=== PATIENT | female | born 1960 | race Caucasian/White ===

== ENCOUNTER 2019-10-19 13:05 | Emergency (ER) | payer MEDICAID, OTHER ==
[~2019-10-19] VITALS: Ht 165.1 cm; Wt 75.2 kg
[~2019-10-19 13:05] MED LIST: CHLO25CA10 PO; SYN0.088T PO
[2019-10-19] MEDS ORDERED: normal saline 1000ML IV soln IVB ONE (13:15)
[2019-10-19] MEDS ORDERED: potassium Cl 20 mEq SR tablet PO STA (13:37)
[2019-10-19] MEDS ORDERED: LORazepam 2 mg/ml vial IV ONE ×2 (13:40→14:35)
[2019-10-19] MEDS ORDERED: potassium Cl 10 mEq/100mL bag IV ONE (13:40)
[2019-10-19] MEDS ORDERED: thiamine 100mg/ml 2ml inj. IV ONE (13:40)
[2019-10-19] MEDS ORDERED: folic acid 1mg/0.2ml inj IV ONE (13:40)
[2019-10-19] MEDS ORDERED: magnesium 2GM in 50ml NS 50 ML IV ONE ×2 (13:40→14:17)
[2019-10-19 13:48] LABS: BASOPHILS % (AUTO) 0.3 % (0-1); EOSINOPHILS % (AUTO) 0.1 % (0-6); HEMATOCRIT 41.2 % (35.0-45.0); HEMOGLOBIN 13.9 g/dl (12.0-16.0); LYMPHOCYTES # (AUTO) 0.7 X10'3 (1.1-4.8); LYMPHOCYTES % (AUTO) 9.6 % (21-51); MEAN CORPUSCULAR HEMOGLOBIN 31.3 PG (27.0-31.0); MEAN CORPUSCULAR HGB CONC 33.8 g/dL (33.0-36.5); MEAN CORPUSCULAR VOLUME 92.8 FL (78-98); MEAN PLATELET VOLUME 7.7 FL (7.4-10.4); MONOCYTES # (AUTO) 0.4 X10'3 (0-0.9); MONOCYTES % (AUTO) 5.6 % (2-12); NEUTROPHILS # (AUTO) 6.5 X10'3 (1.8-7.7); NEUTROPHILS % (AUTO) 84.4 % (42-75); PLATELET COUNT 183 X10'3 (140-440); RED BLOOD COUNT 4.44 X10'6 (4.20-5.60); RED CELL DISTRIBUTION WIDTH 16.4 % (11.5-14.5); WHITE BLOOD COUNT 7.7 X10'3 (4.5-11.0)
[2019-10-19 14:02] LABS: ALANINE AMINOTRANSFERASE 70 U/L (12-78); ALBUMIN 3.9 G/DL (3.4-5.0); ALBUMIN/GLOBULIN RATIO 0.8 (1.1-1.5); ALKALINE PHOSPHATASE 161 IU/L (46-116); ANION GAP 11 (8-16); ASPARTATE AMINO TRANSFERASE 67 U/L (10-37); BILIRUBIN,TOTAL 0.8 MG/DL (0.1-1.0); BLOOD UREA NITROGEN 6 MG/DL (7-18); BUN/CREATININE RATIO 8.3 (6.6-38.0); CALCIUM 9.3 MG/DL (8.5-10.1); CHLORIDE 95 MMOL/L (99-107); CREATININE 0.72 MG/DL (0.40-0.90); ETHANOL < 0.010 GM/DL (0.0-0.010); GLUCOSE 153 MG/DL (70-104); POTASSIUM 4.3 MMOL/L (3.5-5.1); SODIUM 133 MMOL/L (135-145); TOTAL CARBON DIOXIDE 27.4 MMOL/L (24-32); TOTAL PROTEIN 8.7 G/DL (6.4-8.2); eGFR 83 ML/MIN
[2019-10-19] MEDS ORDERED: LORazepam 2 mg/ml vial ONE (14:16)
[2019-10-19] MEDS ORDERED: LORA-269 PO (14:39)
[2019-10-19] MEDS ORDERED: ONDA4TAB6 PO (14:39)
[2019-10-19] MEDS ORDERED: GABA300C PO (14:39)
[2019-10-19] MEDS ORDERED: thiamine 100mg/ml 2ml inj. ONE (15:32)
[2019-10-19 15:52] LABS: CLARITY,URINE CLEAR (Clear); COLOR,URINE YELLOW (Yellow); GLUCOSE, URINE NEGATIVE (Neg); KETONES,URINE NEGATIVE (Neg); LEUKOCYTE ESTERASE ,URINE NEGATIVE (Neg); NITRITES, URINE NEGATIVE (Neg); OCCULT BLOOD,URINE NEGATIVE (Neg); PH,URINE 7.5 (4.8-8.0); PROTEIN,URINE NEGATIVE (Neg); UROBILINOGEN,URINE 0.2 E.U/dL (0.2-1.0)
[2019-10-19 16:00] LABS: URINE AMPHETAMINE SCREEN NEGATIVE (Neg); URINE BARBITUATE SCREEN NEGATIVE (Neg); URINE BENZODIAZEPINES SCREEN NEGATIVE (Neg); URINE CANNABINOID SCREEN NEGATIVE (Neg); URINE COCAINE SCREEN NEGATIVE (Neg); URINE METHADONE SCREEN NEGATIVE (Neg); URINE OPIATE SCREEN NEGATIVE (Neg); URINE PHENCYCLIDINE SCREEN NEGATIVE (Neg)
[2019-10-19 16:12] LABS: UA COLLECTION TYPE OTHER
[2019-10-19 16:23] VITALS: BP 178/93
== END 2019-10-19 17:06 | disposition home or self-care (01) ==
LOC: ER 13:06
DX: F10.239 Alcohol dependence with withdrawal, unspecified (principal); E86.0 Dehydration; R19.7 Diarrhea, unspecified; Z98.0 Intestinal bypass and anastomosis status; Z90.710 Acquired absence of both cervix and uterus; Z98.890 Other specified postprocedural states; Z79.899 Other long term (current) drug therapy; Y90.0 Blood alcohol level of less than 20 mg/100 ml
CPT/HCPCS: 36415; 80053; 80305; 80320; 81003; 85025; 85610; 93005; 96365; 96366; 96375; 99284; J2060; J3411; J3475; J3490; J7030

== ENCOUNTER 2019-11-16 12:14 | Emergency (ER) | payer MEDICAID, OTHER ==
[~2019-11-16] VITALS: Ht 162.6 cm; Wt 67.0 kg
[~2019-11-16 12:14] MED LIST changes: +GABA300C PO; +LORA-269 PO; +ONDA4TAB6 PO
[2019-11-16] MEDS ORDERED: normal saline 1000ML IV soln IVB ONE (12:50)
[2019-11-16] MEDS ORDERED: LORazepam 2 mg/ml vial IV ONE ×2 (13:00→16:00)
[2019-11-16 13:30] LABS: BASOPHILS % (AUTO) 0.8 % (0-1); EOSINOPHILS % (AUTO) 0.1 % (0-6); HEMATOCRIT 41.2 % (35.0-45.0); HEMOGLOBIN 13.7 g/dl (12.0-16.0); LYMPHOCYTES # (AUTO) 0.5 X10'3 (1.1-4.8); LYMPHOCYTES % (AUTO) 9.8 % (21-51); MEAN CORPUSCULAR HEMOGLOBIN 30.7 PG (27.0-31.0); MEAN CORPUSCULAR HGB CONC 33.3 g/dL (33.0-36.5); MEAN PLATELET VOLUME 8.8 FL (7.4-10.4); MONOCYTES # (AUTO) 0.6 X10'3 (0-0.9); MONOCYTES % (AUTO) 11.8 % (2-12); NEUTROPHILS # (AUTO) 3.7 X10'3 (1.8-7.7); NEUTROPHILS % (AUTO) 77.5 % (42-75); PLATELET COUNT 102 X10'3 (140-440); RED BLOOD COUNT 4.48 X10'6 (4.20-5.60); RED CELL DISTRIBUTION WIDTH 18.4 % (11.5-14.5); WHITE BLOOD COUNT 4.7 X10'3 (4.5-11.0)
[2019-11-16] MEDS ORDERED: normal saline 1000ml 1,000 ML IV ONE ×2 (13:30→16:10)
[2019-11-16] MEDS ORDERED: ondansetron/PF 4mg/2ml inj IV ONE (13:30)
[2019-11-16 13:40] LABS: PARTIAL THROMBOPLASTIN TIME 28 SECONDS (22-32)
[2019-11-16 13:43] LABS: ALANINE AMINOTRANSFERASE 114 U/L (12-78); ALBUMIN 3.4 G/DL (3.4-5.0); ALBUMIN/GLOBULIN RATIO 0.7 (1.1-1.5); ALKALINE PHOSPHATASE 193 IU/L (46-116); ANION GAP 14 (8-16); ASPARTATE AMINO TRANSFERASE 116 U/L (10-37); BILIRUBIN,TOTAL 2.1 MG/DL (0.1-1.0); BLOOD UREA NITROGEN 11 MG/DL (7-18); BUN/CREATININE RATIO 12.4 (6.6-38.0); CALCIUM 9.6 MG/DL (8.5-10.1); CHLORIDE 99 MMOL/L (99-107); CREATININE 0.89 MG/DL (0.40-0.90); GLUCOSE 145 MG/DL (70-104); LIPASE 171 U/L (73-393); MAGNESIUM 1.7 MG/DL (1.5-2.4); SODIUM 137 MMOL/L (135-145); TOTAL CARBON DIOXIDE 23.6 MMOL/L (24-32); TOTAL PROTEIN 8.5 G/DL (6.4-8.2); eGFR 65 ML/MIN
[2019-11-16] MEDS ORDERED: folic acid 1mg/0.2ml inj IV ONE (14:10)
[2019-11-16] MEDS ORDERED: thiamine 100mg/ml 2ml inj. IV ONE (14:10)
[2019-11-16 14:21] LABS: ETHANOL < 0.010 GM/DL (0.0-0.010)
[2019-11-16 16:19] LABS: CLARITY,URINE CLOUDY (Clear); GLUCOSE, URINE NEGATIVE (Neg); KETONES,URINE 40 mg/dl (Neg); LEUKOCYTE ESTERASE ,URINE TRACE (Neg); NITRITES, URINE POSITIVE (Neg); OCCULT BLOOD,URINE NEGATIVE (Neg); PROTEIN,URINE NEGATIVE (Neg); UROBILINOGEN,URINE >=8.0 E.U/dL (0.2-1.0)
[2019-11-16 16:27] LABS: URINE AMPHETAMINE SCREEN NEGATIVE (Neg); URINE BARBITUATE SCREEN NEGATIVE (Neg); URINE BENZODIAZEPINES SCREEN NEGATIVE (Neg); URINE CANNABINOID SCREEN NEGATIVE (Neg); URINE COCAINE SCREEN NEGATIVE (Neg); URINE METHADONE SCREEN NEGATIVE (Neg); URINE OPIATE SCREEN NEGATIVE (Neg); URINE PHENCYCLIDINE SCREEN NEGATIVE (Neg)
[2019-11-16 16:37] LABS: UA COLLECTION TYPE OTHER
[2019-11-16 16:41] LABS: BACTERIA,URINE 4+ /HPF (Neg); RBC,URINE NONE SEEN /HPF (0-2); SQUAMOUS EPITHELIAL CELL,UR MODERATE /LPF (FEW)
[2019-11-16 16:42] LABS: COLOR,URINE DARK YELLOW (Yellow)
[2019-11-16 17:00] VITALS: BP 102/63
[2019-11-16] MEDS ORDERED: CHLO25CA10 PO (17:07)
[2019-11-16] MEDS ORDERED: CEPH250T PO (17:07)
== END 2019-11-16 18:14 | disposition home or self-care (01) ==
LOC: ER 12:15
DX: F10.239 Alcohol dependence with withdrawal, unspecified (principal); N39.0 Urinary tract infection, site not specified; Z72.89 Other problems related to lifestyle; Z95.1 Presence of aortocoronary bypass graft; Z90.710 Acquired absence of both cervix and uterus; Z90.89 Acquired absence of other organs; Z79.899 Other long term (current) drug therapy; Y90.0 Blood alcohol level of less than 20 mg/100 ml
CPT/HCPCS: 36415; 76700; 80053; 80305; 80320; 81001; 82140; 83690; 83735; 85025; 85610; 85730; 87077; 87088; 87186; 93005; 96361; 96374; 96375; 96376; 99285; J2060; J2405; J3411; J3490; J7030

== ENCOUNTER 2019-12-08 08:16 | Emergency (ER) | payer MEDICAID, OTHER ==
[~2019-12-08] VITALS: Ht 165.1 cm; Wt 72.7 kg
--- NOTE | 2019-12-08 08:27 | NUR ---
Pt states that she "wants" to be evaluated by mental health. When asked if pt wanted to hurt herself, she states "I wish I was ". Denies thoughts of self harm, but states "I just don't want to wake up".
[2019-12-08] MEDS ORDERED: normal saline 1000ml 1,000 ML IV ONE (08:35)
[2019-12-08] MEDS ORDERED: LORazepam 2 mg/ml vial IV ONE (08:35)
[2019-12-08 08:52] LABS: BASOPHILS % (AUTO) 0.6 % (0-1); EOSINOPHILS % (AUTO) 0.2 % (0-6); HEMATOCRIT 27.6 % (35.0-45.0); HEMOGLOBIN 9.1 g/dl (12.0-16.0); LYMPHOCYTES # (AUTO) 0.5 X10'3 (1.1-4.8); MEAN CORPUSCULAR HEMOGLOBIN 31.1 PG (27.0-31.0); MEAN CORPUSCULAR HGB CONC 33.1 g/dL (33.0-36.5); MEAN CORPUSCULAR VOLUME 93.8 FL (78-98); MONOCYTES # (AUTO) 0.3 X10'3 (0-0.9); MONOCYTES % (AUTO) 6.1 % (2-12); NEUTROPHILS % (AUTO) 82.1 % (42-75); PLATELET COUNT 133 X10'3 (140-440); RED BLOOD COUNT 2.94 X10'6 (4.20-5.60); RED CELL DISTRIBUTION WIDTH 19.5 % (11.5-14.5); WHITE BLOOD COUNT 4.8 X10'3 (4.5-11.0)
[2019-12-08 08:59] LABS: ALANINE AMINOTRANSFERASE 65 U/L (12-78); ALBUMIN 3.1 G/DL (3.4-5.0); ALBUMIN/GLOBULIN RATIO 0.7 (1.1-1.5); ALKALINE PHOSPHATASE 262 IU/L (46-116); ANION GAP 16 (8-16); BILIRUBIN,TOTAL 1.5 MG/DL (0.1-1.0); BLOOD UREA NITROGEN 6 MG/DL (7-18); CALCIUM 8.5 MG/DL (8.5-10.1); CHLORIDE 101 MMOL/L (99-107); GLUCOSE 105 MG/DL (70-104); POTASSIUM 3.9 MMOL/L (3.5-5.1); SODIUM 140 MMOL/L (135-145); TOTAL CARBON DIOXIDE 22.8 MMOL/L (24-32); TOTAL PROTEIN 7.5 G/DL (6.4-8.2); eGFR > 90 ML/MIN
[2019-12-08 09:08] LABS: MAGNESIUM 1.7 MG/DL (1.5-2.4); TROPONIN I < 0.04 NG/ML (0.0-0.05)
[2019-12-08 09:10] LABS: ASPARTATE AMINO TRANSFERASE 98 U/L (10-37)
[2019-12-08 09:11] LABS: ETHANOL < 0.010 GM/DL (0.0-0.010)
[2019-12-08 09:38] LABS: ANISOCYTOSIS 2+; HYPOCHROMASIA 1+; PLATELET ESTIMATE DECREASED
--- NOTE | 2019-12-08 11:29 | NUR ---
Thierno orosco [phone] please call family when able
[2019-12-08] MEDS ORDERED: NO HOME MEDS (12:17)
[2019-12-08 14:42] LABS: CLARITY,URINE CLOUDY (Clear); COLOR,URINE YELLOW (Yellow); GLUCOSE, URINE NEGATIVE (Neg); KETONES,URINE >=80 mg/dl (Neg); LEUKOCYTE ESTERASE ,URINE NEGATIVE (Neg); NITRITES, URINE POSITIVE (Neg); OCCULT BLOOD,URINE TRACE-INTACT (Neg); PROTEIN,URINE NEGATIVE (Neg)
[2019-12-08 14:45] LABS: UA COLLECTION TYPE OTHER
[2019-12-08 14:48] LABS: URINE AMPHETAMINE SCREEN NEGATIVE (Neg); URINE BARBITUATE SCREEN NEGATIVE (Neg); URINE BENZODIAZEPINES SCREEN POSITIVE (Neg); URINE CANNABINOID SCREEN NEGATIVE (Neg); URINE COCAINE SCREEN NEGATIVE (Neg); URINE METHADONE SCREEN NEGATIVE (Neg); URINE OPIATE SCREEN NEGATIVE (Neg); URINE PHENCYCLIDINE SCREEN NEGATIVE (Neg)
[2019-12-08 14:52] LABS: BACTERIA,URINE 4+ /HPF (Neg); MUCUS STRANDS FEW /LPF (Neg); RBC,URINE 0-2 /HPF (0-2); SQUAMOUS EPITHELIAL CELL,UR MODERATE /LPF (FEW)
[2019-12-08] MEDS ORDERED: cephalexin 250mg capsule PO ONE (15:00)
--- NOTE | 2019-12-08 15:14 | NUR ---
Received call from patient's ER provider that she would be getting antibiotics q6h r/t UTI.
--- NOTE | 2019-12-08 15:19 | NUR ---
Patient arrived to room 22 in the ED overflow.
--- NOTE | 2019-12-08 16:00 | NUR ---
Patient requested a warm blanket, assisted to get comfortable in bed. Will cont. to monitor.
--- NOTE | 2019-12-08 16:02 | NUR ---
FAXED PACKET [facility]
--- NOTE | 2019-12-08 17:36 | NUR ---
Patient up to BR to void using FWW, tolerates well. Will cont. to monitor.
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
--- NOTE | 2019-12-08 18:54 | NUR ---
pt sitting up at edge of bed eating her dinner.
[2019-12-08] MEDS ORDERED: diphenhydrAMINE 25mg capsule PO ONE (19:35)
[2019-12-08] MEDS: cephalexin 250mg capsule PO SCH (20:26)
--- NOTE | 2019-12-08 21:30 | NUR ---
pt's IV discontinued. Pt tolerated well. IV intact. no phlebitis noted. pressure placed on iv site when taken out and gauze with tape used to cover old IV insertion site
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
[2019-12-08] MEDS ORDERED: LORazepam 0.5 MG tablet PO ONE (23:30)
[2019-12-09] MEDS: cephalexin 250mg capsule PO SCH (02:56)
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
--- NOTE | 2019-12-09 03:16 | NUR ---
[facility] log case# is [id number]
--- NOTE | 2019-12-09 04:39 | NUR ---
canine enforcement officer here questioning patient.
[2019-12-09 05:35] VITALS: BP 103/73
--- NOTE | 2019-12-09 06:00 | NUR ---
pt's mother is Mignon, her phone number is [phone]
[2019-12-09] MEDS ORDERED: cephalexin 250mg capsule PO SCH (08:00)
[2019-12-09] MEDS ORDERED: CEPH250T PO (10:58)
== END 2019-12-09 15:59 | disposition home or self-care (01) ==
LOC: ER 08:16
DX: N39.0 Urinary tract infection, site not specified (principal); R45.851 Suicidal ideations; R19.7 Diarrhea, unspecified; R07.81 Pleurodynia; E78.00 Pure hypercholesterolemia, unspecified; E11.9 Type 2 diabetes mellitus without complications; F41.9 Anxiety disorder, unspecified; Z90.710 Acquired absence of both cervix and uterus; Z90.89 Acquired absence of other organs; Z98.84 Bariatric surgery status; Z79.899 Other long term (current) drug therapy
CPT/HCPCS: 36415; 70450; 71045; 72125; 80053; 80305; 80320; 81001; 83605; 83735; 84443; 84484; 85025; 87077; 87088; 87186; 96361; 96374; 99285; J2060; J7030; Q0163

== ENCOUNTER 2019-12-22 11:01 | Emergency (ER) | payer MEDICAID, OTHER ==
[~2019-12-22] VITALS: Ht 172.7 cm; Wt 68.2 kg
[~2019-12-22 11:01] MED LIST changes: -CHLO25CA10 PO; -GABA300C PO; -LORA-269 PO; +NO HOME MEDS; -ONDA4TAB6 PO; -SYN0.088T PO
[2019-12-22 12:02] LABS: BASOPHILS % (AUTO) 1.1 % (0-1); EOSINOPHILS % (AUTO) 0.3 % (0-6); HEMOGLOBIN 9.5 g/dl (12.0-16.0); LYMPHOCYTES # (AUTO) 0.9 X10'3 (1.1-4.8); LYMPHOCYTES % (AUTO) 20.9 % (21-51); MEAN CORPUSCULAR HEMOGLOBIN 29.2 PG (27.0-31.0); MEAN CORPUSCULAR HGB CONC 31.7 g/dL (33.0-36.5); MEAN CORPUSCULAR VOLUME 92.3 FL (78-98); MEAN PLATELET VOLUME 6.6 FL (7.4-10.4); MONOCYTES # (AUTO) 0.3 X10'3 (0-0.9); MONOCYTES % (AUTO) 6.9 % (2-12); NEUTROPHILS % (AUTO) 70.8 % (42-75); PLATELET COUNT 215 X10'3 (140-440); RED BLOOD COUNT 3.25 X10'6 (4.20-5.60); RED CELL DISTRIBUTION WIDTH 18.2 % (11.5-14.5); WHITE BLOOD COUNT 4.3 X10'3 (4.5-11.0)
[2019-12-22 12:38] LABS: CLARITY,URINE SLIGHTLY CLOUDY (Clear); COLOR,URINE YELLOW (Yellow); GLUCOSE, URINE NEGATIVE (Neg); KETONES,URINE TRACE mg/dl (Neg); LEUKOCYTE ESTERASE ,URINE NEGATIVE (Neg); NITRITES, URINE NEGATIVE (Neg); OCCULT BLOOD,URINE NEGATIVE (Neg); PROTEIN,URINE NEGATIVE (Neg); UROBILINOGEN,URINE 0.2 E.U/dL (0.2-1.0)
[2019-12-22 12:42] LABS: URINE AMPHETAMINE SCREEN NEGATIVE (Neg); URINE BARBITUATE SCREEN NEGATIVE (Neg); URINE BENZODIAZEPINES SCREEN POSITIVE (Neg); URINE CANNABINOID SCREEN NEGATIVE (Neg); URINE COCAINE SCREEN NEGATIVE (Neg); URINE METHADONE SCREEN NEGATIVE (Neg); URINE OPIATE SCREEN NEGATIVE (Neg); URINE PHENCYCLIDINE SCREEN NEGATIVE (Neg)
[2019-12-22 12:44] LABS: UA COLLECTION TYPE CLN CATCH MIDSTREAM
[2019-12-22 12:45] LABS: HYALINE CASTS 0-3 /LPF (NEGATIVE); MUCUS STRANDS FEW /LPF (Neg); SQUAMOUS EPITHELIAL CELL,UR MODERATE /LPF (FEW)
[2019-12-22 12:45] LABS: PARTIAL THROMBOPLASTIN TIME 25 SECONDS (22-32)
[2019-12-22 12:46] LABS: BACTERIA,URINE FEW /HPF (Neg); RBC,URINE 0-2 /HPF (0-2); WBC,URINE 0-4 /HPF (0-4)
[2019-12-22 12:59] LABS: ALANINE AMINOTRANSFERASE 64 U/L (12-78); ALBUMIN 2.6 G/DL (3.4-5.0); ALBUMIN/GLOBULIN RATIO 0.6 (1.1-1.5); ALKALINE PHOSPHATASE 315 IU/L (46-116); ANION GAP 10 (8-16); ASPARTATE AMINO TRANSFERASE 109 U/L (10-37); BILIRUBIN,TOTAL 0.9 MG/DL (0.1-1.0); BLOOD UREA NITROGEN 6 MG/DL (7-18); BUN/CREATININE RATIO 8.2 (6.6-38.0); CALCIUM 7.9 MG/DL (8.5-10.1); CHLORIDE 106 MMOL/L (99-107); CREATININE 0.73 MG/DL (0.40-0.90); GLUCOSE 98 MG/DL (70-104); MAGNESIUM 1.6 MG/DL (1.5-2.4); POTASSIUM 3.8 MMOL/L (3.5-5.1); SODIUM 140 MMOL/L (135-145); TOTAL CARBON DIOXIDE 23.8 MMOL/L (24-32); TOTAL PROTEIN 6.7 G/DL (6.4-8.2); eGFR 82 ML/MIN
[2019-12-22 13:02] LABS: ETHANOL < 0.010 GM/DL (0.0-0.010)
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
[2019-12-22] MEDS ORDERED: GABA300C PO (13:18)
--- NOTE | 2019-12-22 13:31 | NUR ---
Phoned and left a message for the patient's spouse Matt to return the call. Pt is pending discharge to home when her ride arrives to transport her home.
--- NOTE | 2019-12-22 13:43 | NUR ---
Pt given a sandwich, string cheese, and yogurt to eat while awaiting her spouse to pick her up.
--- NOTE | 2019-12-22 14:12 | NUR ---
Pt's spouse phoned and was informed she is ready for discharge. He reports he will come to the ED to transport her home.
[2019-12-22 14:38] VITALS: BP 129/77
== END 2019-12-22 14:37 | disposition home or self-care (01) ==
LOC: ER 11:02
DX: E11.42 Type 2 diabetes mellitus with diabetic polyneuropathy (principal); F10.20 Alcohol dependence, uncomplicated; R20.0 Anesthesia of skin; F32.9 Major depressive disorder, single episode, unspecified; E78.00 Pure hypercholesterolemia, unspecified; F41.9 Anxiety disorder, unspecified; Z90.710 Acquired absence of both cervix and uterus; Z90.89 Acquired absence of other organs; Z72.89 Other problems related to lifestyle; Y90.0 Blood alcohol level of less than 20 mg/100 ml
CPT/HCPCS: 36415; 80053; 80305; 80320; 81001; 82607; 83735; 85025; 85610; 85730; 99284

== ENCOUNTER 2020-02-22 12:45 | Emergency (ER) | payer MEDICAID, OTHER ==
[~2020-02-22] VITALS: Ht 165.1 cm; Wt 81.8 kg
[~2020-02-22 12:45] MED LIST changes: +LACT10SO32 PO; -NO HOME MEDS; +PANT-47 PO; +SULF1TAB49 PO
[2020-02-22 13:31] LABS: BASOPHILS # (AUTO) 0.2 X10'3 (0-0.2); HEMOGLOBIN 9.3 g/dl (12.0-16.0); MEAN CORPUSCULAR HEMOGLOBIN 30.8 PG (27.0-31.0); MEAN CORPUSCULAR HGB CONC 32.2 g/dL (33.0-36.5); MEAN CORPUSCULAR VOLUME 95.6 FL (78-98); MEAN PLATELET VOLUME 8.8 FL (7.4-10.4); PLATELET COUNT 239 X10'3 (140-440); RED BLOOD COUNT 3.03 X10'6 (4.20-5.60); RED CELL DISTRIBUTION WIDTH 22.6 % (11.5-14.5); WHITE BLOOD COUNT 12.1 X10'3 (4.5-11.0)
[2020-02-22 13:44] LABS: ALANINE AMINOTRANSFERASE 43 U/L (12-78); ALBUMIN 1.8 G/DL (3.4-5.0); ALBUMIN/GLOBULIN RATIO 0.4 (1.1-1.5); ALKALINE PHOSPHATASE 182 IU/L (46-116); ANION GAP 7 (8-16); ASPARTATE AMINO TRANSFERASE 65 U/L (10-37); BILIRUBIN,TOTAL 4.9 MG/DL (0.1-1.0); BLOOD UREA NITROGEN 19 MG/DL (7-18); BUN/CREATININE RATIO 22.6 (6.6-38.0); CALCIUM 8.1 MG/DL (8.5-10.1); CHLORIDE 107 MMOL/L (99-107); CREATININE 0.84 MG/DL (0.40-0.90); GLUCOSE 96 MG/DL (70-104); LIPASE 77 U/L (73-393); SODIUM 138 MMOL/L (135-145); TOTAL CARBON DIOXIDE 24.3 MMOL/L (24-32); TOTAL PROTEIN 6.4 G/DL (6.4-8.2); eGFR 70 ML/MIN
[2020-02-22 14:08] LABS: ANISOCYTOSIS 3+; HYPOCHROMASIA 1+; PLATELET ESTIMATE NORMAL; TOTAL CELLS COUNTED 100
[2020-02-22 15:07] LABS: ETHANOL < 0.010 GM/DL (0.0-0.010)
[2020-02-22 19:19] VITALS: BP 104/71
== END 2020-02-22 16:00 | disposition home or self-care (01) ==
LOC: ER 12:45
DX: R17 Unspecified jaundice (principal); R18.8 Other ascites; E78.00 Pure hypercholesterolemia, unspecified; E11.22 Type 2 diabetes mellitus with diabetic chronic kidney disease; N18.9 Chronic kidney disease, unspecified; E11.42 Type 2 diabetes mellitus with diabetic polyneuropathy; F41.9 Anxiety disorder, unspecified; F32.9 Major depressive disorder, single episode, unspecified; Z90.710 Acquired absence of both cervix and uterus; Z90.49 Acquired absence of other specified parts of digestive tract; Z90.89 Acquired absence of other organs; Z72.89 Other problems related to lifestyle; Z79.899 Other long term (current) drug therapy
CPT/HCPCS: 36415; 80053; 80320; 82140; 83690; 85007; 85025; 99283

== ENCOUNTER 2020-04-10 08:52 | Emergency (ER) | payer MEDICAID ==
[~2020-04-10] VITALS: Ht 165.1 cm; Wt 97.9 kg
[~2020-04-10 08:52] MED LIST changes: -SULF1TAB49 PO
[2020-04-10 09:49] LABS: BASOPHILS # (AUTO) 0.1 X10'3 (0-0.2); EOSINOPHILS % (AUTO) 0.8 % (0-6); HEMATOCRIT 28.4 % (35.0-45.0); LYMPHOCYTES # (AUTO) 1.4 X10'3 (1.1-4.8); LYMPHOCYTES % (AUTO) 23.2 % (21-51); MEAN CORPUSCULAR HEMOGLOBIN 26.7 PG (27.0-31.0); MEAN CORPUSCULAR HGB CONC 31.8 g/dL (33.0-36.5); MEAN PLATELET VOLUME 7.5 FL (7.4-10.4); MONOCYTES # (AUTO) 0.5 X10'3 (0-0.9); MONOCYTES % (AUTO) 8.3 % (2-12); NEUTROPHILS # (AUTO) 4.1 X10'3 (1.8-7.7); NEUTROPHILS % (AUTO) 66.7 % (42-75); PLATELET COUNT 329 X10'3 (140-440); RED BLOOD COUNT 3.38 X10'6 (4.20-5.60); RED CELL DISTRIBUTION WIDTH 17.5 % (11.5-14.5); WHITE BLOOD COUNT 6.1 X10'3 (4.5-11.0)
[2020-04-10 10:00] LABS: ALANINE AMINOTRANSFERASE 14 U/L (12-78); ALBUMIN/GLOBULIN RATIO 0.4 (1.1-1.5); ALKALINE PHOSPHATASE 136 IU/L (46-116); ANION GAP 9 (8-16); ASPARTATE AMINO TRANSFERASE 15 U/L (10-37); BLOOD UREA NITROGEN 12 MG/DL (7-18); BUN/CREATININE RATIO 18.2 (6.6-38.0); CALCIUM 8.3 MG/DL (8.5-10.1); CHLORIDE 109 MMOL/L (99-107); CREATININE 0.66 MG/DL (0.40-0.90); GLUCOSE 87 MG/DL (70-104); POTASSIUM 3.7 MMOL/L (3.5-5.1); SODIUM 143 MMOL/L (135-145); TOTAL CARBON DIOXIDE 24.7 MMOL/L (24-32); TOTAL PROTEIN 6.6 G/DL (6.4-8.2); eGFR > 90 ML/MIN
[2020-04-10 12:16] VITALS: BP 144/100
== END 2020-04-10 12:27 | disposition home or self-care (01) ==
LOC: ER 08:52
DX: G62.9 Polyneuropathy, unspecified (principal); K74.60 Unspecified cirrhosis of liver; E78.00 Pure hypercholesterolemia, unspecified; N18.9 Chronic kidney disease, unspecified; E11.22 Type 2 diabetes mellitus with diabetic chronic kidney disease; F17.200 Nicotine dependence, unspecified, uncomplicated; E07.9 Disorder of thyroid, unspecified; Z90.710 Acquired absence of both cervix and uterus; Z90.89 Acquired absence of other organs; Z98.84 Bariatric surgery status; Z72.89 Other problems related to lifestyle
CPT/HCPCS: 36415; 80053; 85025; 85610; 99283

== ENCOUNTER 2020-04-10 18:18 | Emergency (ER) | payer MEDICAID ==
[~2020-04-10] VITALS: Ht 165.1 cm; Wt 81.8 kg
[2020-04-10 19:57] LABS: CLARITY,URINE SLIGHTLY CLOUDY (Clear); COLOR,URINE AMBER (Yellow); GLUCOSE, URINE NEGATIVE (Neg); KETONES,URINE TRACE mg/dl (Neg); LEUKOCYTE ESTERASE ,URINE NEGATIVE (Neg); NITRITES, URINE NEGATIVE (Neg); OCCULT BLOOD,URINE NEGATIVE (Neg); PH,URINE 5.5 (4.8-8.0); PROTEIN,URINE 30 mg/dl (Neg); UA COLLECTION TYPE CLN CATCH MIDSTREAM
[2020-04-10 20:04] LABS: BACTERIA,URINE 2+ /HPF (Neg); CAL OXALATE CRYSTALS 1+ /HPF (NEGATIVE); MUCUS STRANDS MANY /LPF (Neg); RBC,URINE NONE SEEN /HPF (0-2); SQUAMOUS EPITHELIAL CELL,UR MANY /LPF (FEW); WBC,URINE 0-4 /HPF (0-4)
[2020-04-10 20:24] VITALS: BP 128/89
== END 2020-04-10 20:56 | disposition home or self-care (01) ==
LOC: ER 18:19
DX: K70.31 Alcoholic cirrhosis of liver with ascites (principal); R10.9 Unspecified abdominal pain; F17.210 Nicotine dependence, cigarettes, uncomplicated; G62.9 Polyneuropathy, unspecified; E78.00 Pure hypercholesterolemia, unspecified; N18.9 Chronic kidney disease, unspecified; E11.22 Type 2 diabetes mellitus with diabetic chronic kidney disease; E07.9 Disorder of thyroid, unspecified; Z90.710 Acquired absence of both cervix and uterus; Z98.84 Bariatric surgery status; Z90.89 Acquired absence of other organs; Z79.899 Other long term (current) drug therapy; Z72.89 Other problems related to lifestyle
CPT/HCPCS: 81001; 99283

== ENCOUNTER 2020-05-16 08:36 | Day surgery (SDC) | payer MEDICAID ==
[~2020-05-16] VITALS: Ht 162.6 cm; Wt 91.7 kg
[2020-05-16] VITALS (8 sets, daily range): BP systolic 94–123; BP diastolic 70–86
[2020-05-16] MEDS ORDERED: albumin 25% 100mL bottle x 1 IV PRN (09:05)
[2020-05-16] MEDS ORDERED: POTA8TAB3 PO (09:08)
[2020-05-16] MEDS ORDERED: FURO20TA4 PO (09:08)
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
== END 2020-05-16 12:00 | disposition home or self-care (01) ==
LOC: SSTAY O 08:36
PROVIDERS: ATTEND Radiology Diagnostic Radiology
DX: R18.8 Other ascites (principal); E11.40 Type 2 diabetes mellitus with diabetic neuropathy, unspecified; E78.00 Pure hypercholesterolemia, unspecified; K74.69 Other cirrhosis of liver; E11.22 Type 2 diabetes mellitus with diabetic chronic kidney disease; N18.9 Chronic kidney disease, unspecified; F41.9 Anxiety disorder, unspecified; F32.9 Major depressive disorder, single episode, unspecified; Z98.84 Bariatric surgery status; Z90.710 Acquired absence of both cervix and uterus; Z98.890 Other specified postprocedural states; F17.290 Nicotine dependence, other tobacco product, uncomplicated; Z72.89 Other problems related to lifestyle
CPT/HCPCS: 49083; P9047

== ENCOUNTER 2020-06-23 06:36 | Day surgery (SDC) | payer MEDICAID ==
[2020-06-23] VITALS (9 sets, daily range): BP systolic 115–137; BP diastolic 67–99
[~2020-06-23] VITALS: Ht 160 cm; Wt 99.8 kg
[~2020-06-23 06:36] MED LIST changes: +FURO20TA4 PO; -LACT10SO32 PO; -PANT-47 PO; +POTA8TAB3 PO
[2020-06-23] MEDS ORDERED: MULT-620 PO (07:29)
[2020-06-23] MEDS ORDERED: LORA-269 PO (07:29)
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
[2020-06-23] MEDS: albumin 25% 100mL bottle x 1 IV PRN ×2 (09:11→10:22)
== END 2020-06-23 11:30 | disposition home or self-care (01) ==
LOC: SSTAY O 06:36
PROVIDERS: ATTEND Radiology Diagnostic Radiology
DX: K70.31 Alcoholic cirrhosis of liver with ascites (principal); F41.9 Anxiety disorder, unspecified; F32.9 Major depressive disorder, single episode, unspecified; E11.22 Type 2 diabetes mellitus with diabetic chronic kidney disease; N18.9 Chronic kidney disease, unspecified; E11.40 Type 2 diabetes mellitus with diabetic neuropathy, unspecified; E78.00 Pure hypercholesterolemia, unspecified; Z90.710 Acquired absence of both cervix and uterus; Z98.890 Other specified postprocedural states; Z72.89 Other problems related to lifestyle; Z79.899 Other long term (current) drug therapy; Z98.84 Bariatric surgery status
CPT/HCPCS: 49083; P9047

== ENCOUNTER 2020-08-08 18:44 | Emergency (ER) | payer MEDICAID ==
[~2020-08-08] VITALS: Ht 165.1 cm; Wt 77.3 kg
[~2020-08-08 18:44] MED LIST changes: +LORA-269 PO; +MULT-620 PO
[2020-08-08 19:16] LABS: BASOPHILS # (AUTO) 0.1 X10'3 (0-0.2); BASOPHILS % (AUTO) 1.4 % (0-1); EOSINOPHILS # (AUTO) 0.1 X10'3 (0-0.9); EOSINOPHILS % (AUTO) 1.6 % (0-6); HEMATOCRIT 25.7 % (35.0-45.0); LYMPHOCYTES # (AUTO) 1.7 X10'3 (1.1-4.8); LYMPHOCYTES % (AUTO) 27.9 % (21-51); MEAN CORPUSCULAR HEMOGLOBIN 22.2 PG (27.0-31.0); MEAN CORPUSCULAR VOLUME 71.6 FL (78-98); MEAN PLATELET VOLUME 6.5 FL (7.4-10.4); MONOCYTES # (AUTO) 0.5 X10'3 (0-0.9); MONOCYTES % (AUTO) 8.9 % (2-12); NEUTROPHILS # (AUTO) 3.6 X10'3 (1.8-7.7); NEUTROPHILS % (AUTO) 60.2 % (42-75); PLATELET COUNT 435 X10'3 (140-440); RED BLOOD COUNT 3.59 X10'6 (4.20-5.60); RED CELL DISTRIBUTION WIDTH 15.6 % (11.5-14.5); WHITE BLOOD COUNT 5.9 X10'3 (4.5-11.0)
[2020-08-08 19:34] LABS: ALANINE AMINOTRANSFERASE 13 U/L (12-78); ALBUMIN 2.2 G/DL (3.4-5.0); ALBUMIN/GLOBULIN RATIO 0.5 (1.1-1.5); ALKALINE PHOSPHATASE 118 IU/L (46-116); ANION GAP 11 (8-16); ASPARTATE AMINO TRANSFERASE 12 U/L (10-37); BILIRUBIN,TOTAL 0.2 MG/DL (0.1-1.0); BLOOD UREA NITROGEN 9 MG/DL (7-18); BUN/CREATININE RATIO 13.6 (6.6-38.0); CALCIUM 8.5 MG/DL (8.5-10.1); CHLORIDE 103 MMOL/L (99-107); CREATININE 0.66 MG/DL (0.40-0.90); GLUCOSE 105 MG/DL (70-104); LIPASE 70 U/L (73-393); POTASSIUM 4.1 MMOL/L (3.5-5.1); SODIUM 138 MMOL/L (135-145); TOTAL CARBON DIOXIDE 23.8 MMOL/L (24-32); eGFR > 90 ML/MIN
[2020-08-08 22:14] VITALS: BP 101/70
== END 2020-08-08 22:15 | disposition home or self-care (01) ==
LOC: ER 18:44
DX: R18.8 Other ascites (principal); K74.60 Unspecified cirrhosis of liver; E78.00 Pure hypercholesterolemia, unspecified; N18.9 Chronic kidney disease, unspecified; E11.22 Type 2 diabetes mellitus with diabetic chronic kidney disease; E07.9 Disorder of thyroid, unspecified; E11.42 Type 2 diabetes mellitus with diabetic polyneuropathy; Z90.710 Acquired absence of both cervix and uterus; Z98.84 Bariatric surgery status; Z79.899 Other long term (current) drug therapy; Z98.890 Other specified postprocedural states; Z72.89 Other problems related to lifestyle
CPT/HCPCS: 36415; 49083; 80053; 83690; 85025; 99283; 99285

== ENCOUNTER 2020-09-02 15:55 | Emergency (ER) | payer MEDICAID ==
[~2020-09-02] VITALS: Ht 165.1 cm; Wt 66.8 kg
--- NOTE | 2020-09-02 17:11 | NUR ---
cristian sarmiento at bedside.
[2020-09-02] MEDS ORDERED: LIDOcaine 1% 30ml preserv. free vial IJ STA (17:22)
[2020-09-02 18:45] VITALS: BP 108/78
== END 2020-09-02 18:48 | disposition home or self-care (01) ==
LOC: ER 15:55
DX: K70.31 Alcoholic cirrhosis of liver with ascites (principal); R14.0 Abdominal distension (gaseous); E11.42 Type 2 diabetes mellitus with diabetic polyneuropathy; E78.00 Pure hypercholesterolemia, unspecified; E11.22 Type 2 diabetes mellitus with diabetic chronic kidney disease; N18.9 Chronic kidney disease, unspecified; F41.9 Anxiety disorder, unspecified; F32.9 Major depressive disorder, single episode, unspecified; Z90.710 Acquired absence of both cervix and uterus; Z90.89 Acquired absence of other organs; Z98.890 Other specified postprocedural states; Z72.89 Other problems related to lifestyle; Z79.899 Other long term (current) drug therapy
CPT/HCPCS: 49083; 99285

== ENCOUNTER → 2020-09-11 | Emergency (ER) | payer MEDICAID ==
[~2020-09-11] VITALS: Ht 165.1 cm; Wt 78.0 kg
[~2020-09-11] MED LIST changes: +albumin (human) 25% 100 ML IV solution IV ONE
--- NOTE | 2020-09-11 23:57 | NUR ---
6L OF YELLOWISH FLUID REMOVED VIA PARACENTESIS FROM LLQ ABDOMEN, PT TOLERATED WELL. CATH REMOVED, OCCLUSIVE DRESSING APPLIED, NO BLEEDING. PT REPORTS FEELING MUCH BETTER
[2020-09-11 23:58] VITALS: BP 112/73
== END | disposition home or self-care (01) ==
LOC: ER 20:09
DX: K70.31 Alcoholic cirrhosis of liver with ascites (principal); F10.10 Alcohol abuse, uncomplicated; E11.42 Type 2 diabetes mellitus with diabetic polyneuropathy; E11.22 Type 2 diabetes mellitus with diabetic chronic kidney disease; N18.9 Chronic kidney disease, unspecified; E78.00 Pure hypercholesterolemia, unspecified; G89.29 Other chronic pain; F41.9 Anxiety disorder, unspecified; F32.9 Major depressive disorder, single episode, unspecified; Z98.890 Other specified postprocedural states; Z90.710 Acquired absence of both cervix and uterus; Z90.89 Acquired absence of other organs; Z79.899 Other long term (current) drug therapy; Y90.0 Blood alcohol level of less than 20 mg/100 ml
CPT/HCPCS: 49083; 96365; 99285; P9047

== ENCOUNTER 2020-09-19 07:55 | Day surgery (SDC) | payer MEDICAID ==
[2020-09-19] VITALS (14 sets, daily range): BP systolic 97–122; BP diastolic 60–72
[~2020-09-19] VITALS: Ht 165.1 cm; Wt 76.2 kg
[~2020-09-19 07:55] MED LIST changes: -albumin (human) 25% 100 ML IV solution IV ONE
[2020-09-19] MEDS: albumin 25% 100mL bottle x 1 IV PRN ×3 (09:28→11:03)
== END 2020-09-19 12:20 | disposition home or self-care (01) ==
LOC: SSTAY O 07:55
PROVIDERS: ATTEND Radiology Diagnostic Radiology
DX: R18.8 Other ascites (principal); E78.00 Pure hypercholesterolemia, unspecified; F32.9 Major depressive disorder, single episode, unspecified; F41.9 Anxiety disorder, unspecified; E11.40 Type 2 diabetes mellitus with diabetic neuropathy, unspecified; K74.60 Unspecified cirrhosis of liver; E11.22 Type 2 diabetes mellitus with diabetic chronic kidney disease; N18.9 Chronic kidney disease, unspecified; Z98.84 Bariatric surgery status; Z90.710 Acquired absence of both cervix and uterus; Z98.890 Other specified postprocedural states; Z72.89 Other problems related to lifestyle; Z79.899 Other long term (current) drug therapy
CPT/HCPCS: 49083; P9047

== ENCOUNTER 2020-09-27 07:29 | Day surgery (SDC) | payer MEDICAID ==
[~2020-09-27] VITALS: Ht 162.6 cm; Wt 64.9 kg
[2020-09-27] VITALS (9 sets, daily range): BP systolic 79–114; BP diastolic 46–76
[2020-09-27] MEDS ORDERED: albumin 25% 100mL bottle x 1 IV PRN (08:05)
== END 2020-09-27 11:40 | disposition home or self-care (01) ==
LOC: SSTAY O 07:29
PROVIDERS: ATTEND Radiology Diagnostic Radiology
DX: K70.31 Alcoholic cirrhosis of liver with ascites (principal); E11.40 Type 2 diabetes mellitus with diabetic neuropathy, unspecified; E78.00 Pure hypercholesterolemia, unspecified; E11.22 Type 2 diabetes mellitus with diabetic chronic kidney disease; N18.9 Chronic kidney disease, unspecified; F41.9 Anxiety disorder, unspecified; F32.9 Major depressive disorder, single episode, unspecified; Z98.84 Bariatric surgery status; Z90.710 Acquired absence of both cervix and uterus; Z98.890 Other specified postprocedural states; Z72.89 Other problems related to lifestyle; Z79.899 Other long term (current) drug therapy; F17.290 Nicotine dependence, other tobacco product, uncomplicated
CPT/HCPCS: 49083; P9047

== ENCOUNTER 2020-11-26 10:16 | Emergency (ER) | payer MEDICAID ==
[~2020-11-26] VITALS: Ht 162.6 cm; Wt 78.0 kg
[~2020-11-26 10:16] MED LIST changes: -FURO20TA4 PO; -LORA-269 PO; -POTA8TAB3 PO
[2020-11-26 11:06] LABS: BASOPHILS % (AUTO) 0.9 % (0-1); EOSINOPHILS % (AUTO) 0.9 % (0-6); HEMATOCRIT 29.3 % (35.0-45.0); HEMOGLOBIN 9.1 g/dl (12.0-16.0); LYMPHOCYTES # (AUTO) 1.5 X10'3 (1.1-4.8); MEAN CORPUSCULAR HEMOGLOBIN 21.6 PG (27.0-31.0); MEAN CORPUSCULAR HGB CONC 31.1 g/dL (33.0-36.5); MEAN CORPUSCULAR VOLUME 69.3 FL (78-98); MEAN PLATELET VOLUME 6.3 FL (7.4-10.4); MONOCYTES # (AUTO) 0.5 X10'3 (0-0.9); MONOCYTES % (AUTO) 9.5 % (2-12); NEUTROPHILS # (AUTO) 3.2 X10'3 (1.8-7.7); NEUTROPHILS % (AUTO) 60.7 % (42-75); PLATELET COUNT 423 X10'3 (140-440); RED BLOOD COUNT 4.23 X10'6 (4.20-5.60); RED CELL DISTRIBUTION WIDTH 16.5 % (11.5-14.5); WHITE BLOOD COUNT 5.3 X10'3 (4.5-11.0)
[2020-11-26 11:21] LABS: ALANINE AMINOTRANSFERASE 23 U/L (12-78); ALBUMIN 2.6 G/DL (3.4-5.0); ALBUMIN/GLOBULIN RATIO 0.6 (1.1-1.5); ALKALINE PHOSPHATASE 118 IU/L (46-116); ANION GAP 5 (8-16); ASPARTATE AMINO TRANSFERASE 14 U/L (10-37); BILIRUBIN,TOTAL 0.3 MG/DL (0.1-1.0); BLOOD UREA NITROGEN 7 MG/DL (7-18); BUN/CREATININE RATIO 13.5 (6.6-38.0); CALCIUM 8.3 MG/DL (8.5-10.1); CHLORIDE 101 MMOL/L (99-107); CREATININE 0.52 MG/DL (0.40-0.90); GLUCOSE 93 MG/DL (70-104); LIPASE < 50 U/L (73-393); POTASSIUM 4.4 MMOL/L (3.5-5.1); SODIUM 132 MMOL/L (135-145); TOTAL PROTEIN 7.2 G/DL (6.4-8.2); eGFR > 90 ML/MIN
[2020-11-26 11:27] LABS: ANISOCYTOSIS 1+; MICROCYTOSIS 2+; PLATELET ESTIMATE NORMAL
[2020-11-26] MEDS ORDERED: albumin (human) 25% 100 ML IV solution IV ONE (13:25)
[2020-11-26 13:53] LABS: BASOPHILS # (AUTO) 0.1 X10'3 (0-0.2); BASOPHILS % (AUTO) 0.9 % (0-1); EOSINOPHILS # (AUTO) 0.1 X10'3 (0-0.9); EOSINOPHILS % (AUTO) 0.8 % (0-6); HEMATOCRIT 27.2 % (35.0-45.0); HEMOGLOBIN 8.5 g/dl (12.0-16.0); LYMPHOCYTES % (AUTO) 32.6 % (21-51); MEAN CORPUSCULAR HEMOGLOBIN 21.7 PG (27.0-31.0); MEAN CORPUSCULAR HGB CONC 31.2 g/dL (33.0-36.5); MEAN CORPUSCULAR VOLUME 69.7 FL (78-98); MEAN PLATELET VOLUME 6.4 FL (7.4-10.4); MONOCYTES # (AUTO) 0.6 X10'3 (0-0.9); MONOCYTES % (AUTO) 9.4 % (2-12); NEUTROPHILS # (AUTO) 3.5 X10'3 (1.8-7.7); NEUTROPHILS % (AUTO) 56.3 % (42-75); PLATELET COUNT 407 X10'3 (140-440); RED BLOOD COUNT 3.89 X10'6 (4.20-5.60); RED CELL DISTRIBUTION WIDTH 16.7 % (11.5-14.5); WHITE BLOOD COUNT 6.2 X10'3 (4.5-11.0)
--- NOTE | 2020-11-26 14:13 | NUR ---
Dr Asher empties 6 liters of body fluid from paracentises.
[2020-11-26 14:27] VITALS: BP 129/93
[2020-11-26 14:34] LABS: GLUCOSE,BODY FLUID 91 MG/DL; TOTAL PROTEIN,BODY FLUID 4.4 G/DL
[2020-11-26 15:07] LABS: BF RBC COUNT 62 /CU MM; BF WBC COUNT 220 /CU MM (0-1000); BFAPPEAR CLEAR; BFCOLOR YELLOW; BFVOLUME 65 ML
[2020-11-26 15:08] LABS: BF MESOTHELIAL CELLS FEW; LYMPHOCYTES,BODY FLUID 94 %; MONOCYTES,BODY FLUID 6 %
== END 2020-11-26 14:56 | disposition home or self-care (01) ==
LOC: ER 10:17
DX: K70.31 Alcoholic cirrhosis of liver with ascites (principal); R10.84 Generalized abdominal pain; R11.0 Nausea; E11.42 Type 2 diabetes mellitus with diabetic polyneuropathy; E11.22 Type 2 diabetes mellitus with diabetic chronic kidney disease; N18.9 Chronic kidney disease, unspecified; E78.00 Pure hypercholesterolemia, unspecified; G89.29 Other chronic pain; F41.9 Anxiety disorder, unspecified; F32.9 Major depressive disorder, single episode, unspecified; Z90.710 Acquired absence of both cervix and uterus; Z90.89 Acquired absence of other organs; Z72.89 Other problems related to lifestyle; Z79.899 Other long term (current) drug therapy
CPT/HCPCS: 36415; 49083; 80053; 82140; 82945; 83690; 83986; 84157; 85008; 85025; 85610; 87070; 89051; 96365; 99285; P9047

== ENCOUNTER 2020-12-30 13:16 | Emergency (ER) | payer MEDICAID ==
[~2020-12-30] VITALS: Ht 162.6 cm; Wt 69.5 kg
[2020-12-30 13:35] VITALS: BP 110/83
[2020-12-30 14:18] LABS: BASOPHILS % (AUTO) 0.6 % (0-1); EOSINOPHILS % (AUTO) 0.6 % (0-6); HEMATOCRIT 28.5 % (35.0-45.0); LYMPHOCYTES # (AUTO) 1.9 X10'3 (1.1-4.8); LYMPHOCYTES % (AUTO) 27.1 % (21-51); MEAN CORPUSCULAR HGB CONC 31.8 g/dL (33.0-36.5); MEAN CORPUSCULAR VOLUME 66.3 FL (78-98); MEAN PLATELET VOLUME 6.9 FL (7.4-10.4); MONOCYTES # (AUTO) 0.7 X10'3 (0-0.9); MONOCYTES % (AUTO) 10.4 % (2-12); NEUTROPHILS # (AUTO) 4.2 X10'3 (1.8-7.7); NEUTROPHILS % (AUTO) 61.3 % (42-75); PLATELET COUNT 470 X10'3 (140-440); RED CELL DISTRIBUTION WIDTH 16.8 % (11.5-14.5); WHITE BLOOD COUNT 6.9 X10'3 (4.5-11.0)
[2020-12-30 14:28] LABS: ALANINE AMINOTRANSFERASE 22 U/L (12-78); ALBUMIN 3.3 G/DL (3.4-5.0); ALBUMIN/GLOBULIN RATIO 0.8 (1.1-1.5); ALKALINE PHOSPHATASE 127 IU/L (46-116); ANION GAP 8 (8-16); ASPARTATE AMINO TRANSFERASE 15 U/L (10-37); BILIRUBIN,TOTAL 0.4 MG/DL (0.1-1.0); BLOOD UREA NITROGEN 8 MG/DL (7-18); BUN/CREATININE RATIO 16.7 (6.6-38.0); CALCIUM 8.3 MG/DL (8.5-10.1); CHLORIDE 89 MMOL/L (99-107); CREATININE 0.48 MG/DL (0.40-0.90); GLUCOSE 103 MG/DL (70-104); LIPASE < 50 U/L (73-393); POTASSIUM 4.7 MMOL/L (3.5-5.1); TOTAL CARBON DIOXIDE 21.7 MMOL/L (24-32); TOTAL PROTEIN 7.7 G/DL (6.4-8.2); eGFR > 90 ML/MIN
[2020-12-30 14:47] LABS: SODIUM 119 MMOL/L (135-145)
[2020-12-30 15:05] LABS: ANISOCYTOSIS 1+; HYPOCHROMASIA 2+; PLATELET ESTIMATE INCREASED; POLYCHROMASIA 1+
[2020-12-30 15:06] LABS: MICROCYTOSIS 2+
== END 2020-12-30 18:30 | disposition left against medical advice (07) ==
LOC: ER 13:17
DX: R10.9 Unspecified abdominal pain (principal); Z53.21 Procedure and treatment not carried out due to patient leaving prior to being seen by health care provider
CPT/HCPCS: 36415; 80053; 83690; 85008; 85025

== ENCOUNTER 2021-01-06 13:17 | Observation (INO) | payer MEDICAID ==
[~2021-01-06] VITALS: Ht 162.6 cm; Wt 113.6 kg
[2021-01-06] MEDS ORDERED: LORazepam 1 MG tablet PO ONE ×2 (16:00→19:45)
--- NOTE | 2021-01-06 16:00 | NUR ---
Patient c/o increased discomfort and she is restless, unable to sit still. Patient standing up and sitting on walker.
[2021-01-06 16:05] LABS: BASOPHILS % (AUTO) 1.4 % (0-1); EOSINOPHILS % (AUTO) 0.1 % (0-6); HEMATOCRIT 28.1 % (35.0-45.0); HEMOGLOBIN 9.2 g/dl (12.0-16.0); LYMPHOCYTES # (AUTO) 0.7 X10'3 (1.1-4.8); MEAN CORPUSCULAR HEMOGLOBIN 21.5 PG (27.0-31.0); MEAN CORPUSCULAR HGB CONC 32.6 g/dL (33.0-36.5); MEAN PLATELET VOLUME 6.3 FL (7.4-10.4); MONOCYTES # (AUTO) 0.3 X10'3 (0-0.9); MONOCYTES % (AUTO) 12.2 % (2-12); NEUTROPHILS # (AUTO) 1.5 X10'3 (1.8-7.7); NEUTROPHILS % (AUTO) 59.3 % (42-75); PLATELET COUNT 308 X10'3 (140-440); RED BLOOD COUNT 4.26 X10'6 (4.20-5.60); RED CELL DISTRIBUTION WIDTH 17.4 % (11.5-14.5); WHITE BLOOD COUNT 2.6 X10'3 (4.5-11.0)
[2021-01-06 16:06] LABS: ALANINE AMINOTRANSFERASE 49 U/L (12-78); ALBUMIN 3.3 G/DL (3.4-5.0); ALBUMIN/GLOBULIN RATIO 0.7 (1.1-1.5); ALKALINE PHOSPHATASE 132 IU/L (46-116); ANION GAP 9 (8-16); ASPARTATE AMINO TRANSFERASE 38 U/L (10-37); BILIRUBIN,TOTAL 0.3 MG/DL (0.1-1.0); BLOOD UREA NITROGEN 5 MG/DL (7-18); BUN/CREATININE RATIO 11.6 (6.6-38.0); CALCIUM 7.4 MG/DL (8.5-10.1); CHLORIDE 90 MMOL/L (99-107); CREATININE 0.43 MG/DL (0.40-0.90); ETHANOL < 0.010 GM/DL (0.0-0.010); GLUCOSE 85 MG/DL (70-104); SODIUM 124 MMOL/L (135-145); TOTAL CARBON DIOXIDE 25.3 MMOL/L (24-32); TOTAL PROTEIN 7.9 G/DL (6.4-8.2); eGFR > 90 ML/MIN
[2021-01-06 16:28] LABS: ANISOCYTOSIS 1+; MICROCYTOSIS 2+; PLATELET ESTIMATE NORMAL; TOTAL CELLS COUNTED 100
[2021-01-06 16:29] LABS: SCHISTOCYTES FEW
[2021-01-06] MEDS ORDERED: HYDROcodone/acetaminophen 5mg/325mg tablet PO ONE (16:40)
--- NOTE | 2021-01-06 16:40 | NUR ---
Patient c/o pain, Patient states that she has chronic pain. Dr. Hodges informed, He stated to place verbal order norco 5/325 mg PO once now. Will place order per MD request and administer as prescribed.
[2021-01-06 16:51] LABS: URINE HCG NEGATIVE (NEG)
--- NOTE | 2021-01-06 16:52 | NUR ---
Patient is now resting on [facility].
[2021-01-06 16:55] LABS: URINE AMPHETAMINE SCREEN NEGATIVE (Neg); URINE BARBITUATE SCREEN NEGATIVE (Neg); URINE BENZODIAZEPINES SCREEN NEGATIVE (Neg); URINE CANNABINOID SCREEN NEGATIVE (Neg); URINE COCAINE SCREEN NEGATIVE (Neg); URINE METHADONE SCREEN NEGATIVE (Neg); URINE OPIATE SCREEN NEGATIVE (Neg); URINE PHENCYCLIDINE SCREEN NEGATIVE (Neg)
--- NOTE | 2021-01-06 17:00 | NUR ---
Patient observed resting with eyes closed on gurney in hallway.
--- NOTE | 2021-01-06 18:00 | NUR ---
Patient states that she is uncomfortable in the hallway, but she is aware that there is no other rooms to have be go to at this time. Patient sitting on edge of bed, denies dizziness at this time.
[2021-01-06 18:36] LABS: CLARITY,URINE CLEAR (Clear); COLOR,URINE YELLOW (Yellow); GLUCOSE, URINE NEGATIVE (Neg); KETONES,URINE NEGATIVE (Neg); LEUKOCYTE ESTERASE ,URINE NEGATIVE (Neg); NITRITES, URINE NEGATIVE (Neg); OCCULT BLOOD,URINE NEGATIVE (Neg); PROTEIN,URINE NEGATIVE (Neg)
[2021-01-06 18:39] LABS: UA COLLECTION TYPE CLN CATCH MIDSTREAM
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
[2021-01-06] MEDS ORDERED: melatonin (19:36)
--- NOTE | 2021-01-06 19:44 | NUR ---
The patient was moved to bed 26 in the main ER. She was alert and cooperative but not fully oriented. She was unable to fully state what medications she took and when asked what the month and year was she replied, "December? 2021" She is reporting high anxiety and passive suicidal thoughts. She denies that she has a plan for suicide at this time but stated that she just doesnt want to live. She reports that she is not sleeping well at home and that "I have to force myself to eat" She stated that her mother one week ago and that her distress has accelerated since that time.
--- NOTE | 2021-01-06 19:46 | NUR ---
Discussed with Dr. Hodges concern regarding NA of 124, ascites and history of having the fluid removed weekly. Discussed patient report of pain and not being able to sleep. Orders received.
[2021-01-06] MEDS: ibuprofen tablet 400 MG TABLET PO PRN (20:12)
--- NOTE | 2021-01-06 20:41 | NUR ---
Patient tested positive for covid. MD made aware and charge entry clerk also made aware
[2021-01-06] MEDS ORDERED: temazepam 15mg capsule PO PRN (21:00)
--- NOTE | 2021-01-06 21:00 | NUR ---
pt moved to main er room 13 from overflow to be admitted. additional equipment removed from room, bed in low position, in direct line of sight and commode at bedside. current equpitment is bed and IV pole, pump, and regulatory coordinator.
[2021-01-06] MEDS ORDERED: acetaminophen 325mg tablet PO PRN ×2 (22:10)
[2021-01-06] MEDS ORDERED: ondansetron/PF 4mg/2ml inj IV PRN (22:10)
[2021-01-06] MEDS: normal saline 1000ml 1,000 ML IV SCH (22:10)
[2021-01-06] MEDS ORDERED: TRAZ-251 PO (22:30)
[2021-01-06] MEDS ORDERED: FURO20TA4 PO (22:30)
[2021-01-06] MEDS ORDERED: DULO30CA52 PO (22:30)
[2021-01-06] MEDS ORDERED: THIA100T66 PO (22:30)
[2021-01-06] MEDS ORDERED: FERR325T29 PO (22:30)
[2021-01-06] MEDS ORDERED: CHOL100017 PO (22:30)
[2021-01-06] MEDS ORDERED: SPIR100T5 PO (22:30)
[2021-01-06 22:39] LABS: C-REACTIVE PROTEIN 0.69 MG/DL (0.0-0.5); LACTATE DEHYDROGENASE 138 U/L (81-234)
[2021-01-06 22:41] LABS: PARTIAL THROMBOPLASTIN TIME 32 SECONDS (22-32)
[2021-01-07] MEDS ORDERED: MELA3TAB39 PO (00:46)
[2021-01-07 02:37] LABS: BASOPHILS % (AUTO) 1.3 % (0-1); EOSINOPHILS % (AUTO) 0.8 % (0-6); HEMATOCRIT 25.3 % (35.0-45.0); HEMOGLOBIN 7.9 g/dl (12.0-16.0); LYMPHOCYTES # (AUTO) 1.1 X10'3 (1.1-4.8); LYMPHOCYTES % (AUTO) 45.1 % (21-51); MEAN CORPUSCULAR HEMOGLOBIN 20.9 PG (27.0-31.0); MEAN CORPUSCULAR HGB CONC 31.2 g/dL (33.0-36.5); MEAN PLATELET VOLUME 6.6 FL (7.4-10.4); MONOCYTES # (AUTO) 0.4 X10'3 (0-0.9); MONOCYTES % (AUTO) 14.6 % (2-12); NEUTROPHILS % (AUTO) 38.2 % (42-75); PLATELET COUNT 242 X10'3 (140-440); RED BLOOD COUNT 3.77 X10'6 (4.20-5.60); RED CELL DISTRIBUTION WIDTH 17.3 % (11.5-14.5); WHITE BLOOD COUNT 2.5 X10'3 (4.5-11.0)
[2021-01-07 03:03] LABS: ALANINE AMINOTRANSFERASE 35 U/L (12-78); ALBUMIN 2.6 G/DL (3.4-5.0); ALBUMIN/GLOBULIN RATIO 0.7 (1.1-1.5); ALKALINE PHOSPHATASE 116 IU/L (46-116); ANION GAP 5 (8-16); ASPARTATE AMINO TRANSFERASE 30 U/L (10-37); BILIRUBIN,TOTAL 0.2 MG/DL (0.1-1.0); BLOOD UREA NITROGEN 9 MG/DL (7-18); CALCIUM 7.6 MG/DL (8.5-10.1); CHLORIDE 95 MMOL/L (99-107); CREATININE 0.36 MG/DL (0.40-0.90); GLUCOSE 80 MG/DL (70-104); POTASSIUM 3.9 MMOL/L (3.5-5.1); SODIUM 125 MMOL/L (135-145); TOTAL CARBON DIOXIDE 24.6 MMOL/L (24-32); TOTAL PROTEIN 6.2 G/DL (6.4-8.2); eGFR > 90 ML/MIN
[2021-01-07 03:40] LABS: ANISOCYTOSIS 1+; MICROCYTOSIS 2+; PLATELET ESTIMATE NORMAL; TOTAL CELLS COUNTED 100
[2021-01-07 03:41] LABS: HYPOCHROMASIA 1+
[2021-01-07 04:58] VITALS: BP 134/78
[2021-01-07] MEDS ORDERED: heparin, porcine 5000 units/ml vial SQ SCH (08:00)
[2021-01-07] MEDS ORDERED: dexamethasone 4mg/ml inj IV SCH (08:00)
[2021-01-07] MEDS ORDERED: cefepime 2g/NS 100ml ADVANTAGE 100 ML IV SCH (08:00)
[2021-01-07] MEDS: normal saline 1000ml 1,000 ML IV SCH (09:20)
[2021-01-07] MEDS: ibuprofen tablet 400 MG TABLET PO PRN (11:11)
--- NOTE | 2021-01-07 14:31 | NUR ---
CALL PLACED TO PT DAUGHTER NO ANSWER. WILL SEND PT HOME IN CAB WITH N95 MASK TO HER HOTEL
== END 2021-01-07 15:00 | disposition home health service (06) ==
LOC: ER 13:17 → ED HOLD 22:14 → UNDOADMOB 22:31
PROVIDERS: ADMIT Internal Medicine; ATTEND Family Medicine
DX: U07.1 COVID-19 (principal); R45.851 Suicidal ideations; D70.9 Neutropenia, unspecified; D64.9 Anemia, unspecified; R18.8 Other ascites; G62.9 Polyneuropathy, unspecified; E78.00 Pure hypercholesterolemia, unspecified; K74.60 Unspecified cirrhosis of liver; N18.9 Chronic kidney disease, unspecified; E11.9 Type 2 diabetes mellitus without complications; F41.9 Anxiety disorder, unspecified; F32.9 Major depressive disorder, single episode, unspecified; E03.9 Hypothyroidism, unspecified; G93.41 Metabolic encephalopathy; F17.200 Nicotine dependence, unspecified, uncomplicated; Z90.710 Acquired absence of both cervix and uterus; Z90.89 Acquired absence of other organs
CPT/HCPCS: 36415; 71045; 80053; 80305; 80320; 81003; 81025; 83615; 85007; 85025; 85610; 85730; 86140; 87635; 96361; 96365; 96372; 96375; 99284; C9803; G0378; J0692; J1100; J1644; J7030

== ENCOUNTER 2021-01-10 23:43 | Emergency (ER) | payer MEDICAID ==
[~2021-01-10] VITALS: Ht 170.2 cm; Wt 68.2 kg
[~2021-01-10 23:43] MED LIST changes: +CHOL100017 PO; +DULO30CA52 PO; +FERR325T29 PO; +FURO20TA4 PO; +MELA3TAB39 PO; +SPIR100T5 PO; +THIA100T66 PO; +TRAZ-251 PO; +melatonin
[2021-01-10 23:56] VITALS: BP 141/97
--- NOTE | 2021-01-11 00:14 | NUR ---
Patient states "I am too sick to be sitting out here- I might just call a cab and leave".
[2021-01-11] MEDS ORDERED: acetaminophen 325mg tablet PO ONE (00:40)
== END 2021-01-11 01:11 | disposition home or self-care (01) ==
LOC: ER 23:44
DX: U07.1 COVID-19 (principal); R52 Pain, unspecified; R11.2 Nausea with vomiting, unspecified; E11.42 Type 2 diabetes mellitus with diabetic polyneuropathy; E78.00 Pure hypercholesterolemia, unspecified; E11.22 Type 2 diabetes mellitus with diabetic chronic kidney disease; N18.9 Chronic kidney disease, unspecified; F41.9 Anxiety disorder, unspecified; F32.9 Major depressive disorder, single episode, unspecified; Z90.710 Acquired absence of both cervix and uterus; Z90.89 Acquired absence of other organs; Z79.899 Other long term (current) drug therapy
CPT/HCPCS: 99283

== ENCOUNTER 2021-01-11 06:29 | Emergency (ER) | payer MEDICAID ==
[~2021-01-11] VITALS: Ht 162.6 cm; Wt 63.6 kg
[~2021-01-11 06:29] MED LIST changes: -melatonin
[2021-01-11 06:38] VITALS: BP 140/90
== END 2021-01-11 07:45 | disposition home or self-care (01) ==
LOC: ER 06:30
DX: U07.1 COVID-19 (principal); R11.0 Nausea; R50.9 Fever, unspecified; E11.42 Type 2 diabetes mellitus with diabetic polyneuropathy; E78.00 Pure hypercholesterolemia, unspecified; G89.29 Other chronic pain; F41.9 Anxiety disorder, unspecified; F32.9 Major depressive disorder, single episode, unspecified; Z90.710 Acquired absence of both cervix and uterus; Z90.89 Acquired absence of other organs; Z79.899 Other long term (current) drug therapy
CPT/HCPCS: 99283

== ENCOUNTER 2021-01-11 13:22 | Emergency (ER) | payer MEDICAID ==
[~2021-01-11] VITALS: Ht 162.6 cm; Wt 63.6 kg
[2021-01-11 13:43] VITALS: BP 121/84
== END 2021-01-11 13:53 | disposition home or self-care (01) ==
LOC: ER 13:23
DX: U07.1 COVID-19 (principal); R52 Pain, unspecified; E11.42 Type 2 diabetes mellitus with diabetic polyneuropathy; E78.00 Pure hypercholesterolemia, unspecified; F41.9 Anxiety disorder, unspecified; F32.9 Major depressive disorder, single episode, unspecified; Z90.710 Acquired absence of both cervix and uterus; Z90.89 Acquired absence of other organs; Z98.890 Other specified postprocedural states; Z79.899 Other long term (current) drug therapy
CPT/HCPCS: 99283

== ENCOUNTER 2021-01-11 21:05 | Emergency (ER) | payer MEDICAID ==
[~2021-01-11] VITALS: Ht 162.6 cm; Wt 55.0 kg
[2021-01-11] MEDS ORDERED: traMADol 50MG tablet PO ONE (21:15)
[2021-01-11 21:56] VITALS: BP 129/77
== END 2021-01-11 22:06 | disposition home or self-care (01) ==
LOC: ER 21:05
DX: U07.1 COVID-19 (principal); K70.30 Alcoholic cirrhosis of liver without ascites; R18.8 Other ascites; E11.42 Type 2 diabetes mellitus with diabetic polyneuropathy; E78.00 Pure hypercholesterolemia, unspecified; G89.29 Other chronic pain; F41.9 Anxiety disorder, unspecified; F32.9 Major depressive disorder, single episode, unspecified; Z90.710 Acquired absence of both cervix and uterus; Z90.89 Acquired absence of other organs; Z98.890 Other specified postprocedural states; Z79.899 Other long term (current) drug therapy
CPT/HCPCS: 99283

== ENCOUNTER 2021-01-12 08:10 | Emergency (ER) | payer MEDICAID ==
[~2021-01-12] VITALS: Ht 162.6 cm; Wt 63.6 kg
[2021-01-12 08:13] VITALS: BP 121/82
[2021-01-12 09:17] LABS: BASOPHILS % (AUTO) 0.6 % (0-1); EOSINOPHILS % (AUTO) 1.1 % (0-6); HEMATOCRIT 28.8 % (35.0-45.0); HEMOGLOBIN 9.3 g/dl (12.0-16.0); LYMPHOCYTES # (AUTO) 1.4 X10'3 (1.1-4.8); MEAN CORPUSCULAR HGB CONC 32.2 g/dL (33.0-36.5); MEAN CORPUSCULAR VOLUME 65.2 FL (78-98); MEAN PLATELET VOLUME 6.4 FL (7.4-10.4); MONOCYTES # (AUTO) 0.4 X10'3 (0-0.9); MONOCYTES % (AUTO) 11.8 % (2-12); NEUTROPHILS # (AUTO) 1.8 X10'3 (1.8-7.7); NEUTROPHILS % (AUTO) 48.5 % (42-75); PLATELET COUNT 247 X10'3 (140-440); RED BLOOD COUNT 4.41 X10'6 (4.20-5.60); RED CELL DISTRIBUTION WIDTH 17.1 % (11.5-14.5); WHITE BLOOD COUNT 3.7 X10'3 (4.5-11.0)
[2021-01-12 09:19] LABS: ALBUMIN 3.2 G/DL (3.4-5.0); ANION GAP 10 (8-16); BLOOD UREA NITROGEN 7 MG/DL (7-18); BUN/CREATININE RATIO 15.9 (6.6-38.0); CALCIUM 7.9 MG/DL (8.5-10.1); CHLORIDE 87 MMOL/L (99-107); CREATININE 0.44 MG/DL (0.40-0.90); GLUCOSE 87 MG/DL (70-104); POTASSIUM 4.2 MMOL/L (3.5-5.1); TOTAL CARBON DIOXIDE 22.3 MMOL/L (24-32); eGFR > 90 ML/MIN
[2021-01-12 09:28] LABS: SODIUM 119 MMOL/L (135-145)
[2021-01-12] MEDS ORDERED: normal saline 1000ml 1,000 ML IV ONE (09:35)
[2021-01-12 10:22] LABS: ANISOCYTOSIS 1+; MICROCYTOSIS 2+; PLATELET ESTIMATE NORMAL
[2021-01-12 10:23] LABS: HYPOCHROMASIA 1+; LARGE PLATELETS FEW
[2021-01-13] MEDS ORDERED: MELO-100 PO (14:31)
[2021-01-13] MEDS ORDERED: SODI100035 PO (14:31)
== END 2021-01-12 11:34 | disposition home or self-care (01) ==
LOC: ER 08:11
DX: U07.1 COVID-19 (principal); E87.1 Hypo-osmolality and hyponatremia; R05 Cough; R11.0 Nausea; E11.42 Type 2 diabetes mellitus with diabetic polyneuropathy; E78.00 Pure hypercholesterolemia, unspecified; G89.29 Other chronic pain; F41.9 Anxiety disorder, unspecified; F32.9 Major depressive disorder, single episode, unspecified; Z90.710 Acquired absence of both cervix and uterus; Z90.89 Acquired absence of other organs; Z98.890 Other specified postprocedural states; Z79.899 Other long term (current) drug therapy
CPT/HCPCS: 80048; 85008; 85025; 99283

== ENCOUNTER 2021-01-13 14:10 | Emergency (ER) | payer MEDICAID ==
[~2021-01-13] VITALS: Ht 162.6 cm; Wt 63.6 kg
[2021-01-13 14:13] VITALS: BP 132/93
[2021-01-13] MEDS ORDERED: sodium chloride 1gm tablet PO ONE (14:30)
[2021-01-13] MEDS ORDERED: ketorolac trometh inj. 60 MG/2 ML VIAL IM ONE (14:30)
[2021-01-13] MEDS ORDERED: SODI100035 PO (14:31)
[2021-01-13] MEDS ORDERED: MELO-100 PO (14:31)
[2021-01-13] MEDS ORDERED: ketorolac trometh. 30mg/ml inj. IM ONE (14:35)
[2021-01-14] MEDS ORDERED: MELA3TAB70 PO (16:02)
== END 2021-01-13 16:03 | disposition home or self-care (01) ==
LOC: ER 14:11
DX: E87.1 Hypo-osmolality and hyponatremia (principal); U07.1 COVID-19; R52 Pain, unspecified; E11.43 Type 2 diabetes mellitus with diabetic autonomic (poly)neuropathy; E78.00 Pure hypercholesterolemia, unspecified; K74.60 Unspecified cirrhosis of liver; E11.22 Type 2 diabetes mellitus with diabetic chronic kidney disease; N18.9 Chronic kidney disease, unspecified; Z90.710 Acquired absence of both cervix and uterus; Z98.84 Bariatric surgery status; Z79.899 Other long term (current) drug therapy
CPT/HCPCS: 96372; 99283; J1885

== ENCOUNTER 2021-01-14 10:54 | Inpatient (IN) | payer MEDICAID ==
[~2021-01-14] VITALS: Ht 162.6 cm; Wt 135.0 kg
[~2021-01-14 10:54] MED LIST changes: +MELO-100 PO; +SODI100035 PO
[2021-01-14 13:43] LABS: BASOPHILS % (AUTO) 0.8 % (0-1); EOSINOPHILS % (AUTO) 0.5 % (0-6); HEMATOCRIT 28.4 % (35.0-45.0); HEMOGLOBIN 8.9 g/dl (12.0-16.0); LYMPHOCYTES # (AUTO) 1.5 X10'3 (1.1-4.8); LYMPHOCYTES % (AUTO) 31.1 % (21-51); MEAN CORPUSCULAR HEMOGLOBIN 20.7 PG (27.0-31.0); MEAN CORPUSCULAR HGB CONC 31.4 g/dL (33.0-36.5); MEAN CORPUSCULAR VOLUME 65.9 FL (78-98); MEAN PLATELET VOLUME 6.5 FL (7.4-10.4); MONOCYTES # (AUTO) 0.7 X10'3 (0-0.9); NEUTROPHILS # (AUTO) 2.5 X10'3 (1.8-7.7); NEUTROPHILS % (AUTO) 53.6 % (42-75); PLATELET COUNT 267 X10'3 (140-440); RED BLOOD COUNT 4.31 X10'6 (4.20-5.60); RED CELL DISTRIBUTION WIDTH 17.5 % (11.5-14.5); WHITE BLOOD COUNT 4.7 X10'3 (4.5-11.0)
[2021-01-14 13:56] LABS: ALANINE AMINOTRANSFERASE 30 U/L (12-78); ALBUMIN 3.1 G/DL (3.4-5.0); ALBUMIN/GLOBULIN RATIO 0.7 (1.1-1.5); ALKALINE PHOSPHATASE 137 IU/L (46-116); ANION GAP 8 (8-16); ASPARTATE AMINO TRANSFERASE 22 U/L (10-37); BILIRUBIN,TOTAL 0.5 MG/DL (0.1-1.0); BLOOD UREA NITROGEN 10 MG/DL (7-18); BUN/CREATININE RATIO 20.8 (6.6-38.0); CALCIUM 7.9 MG/DL (8.5-10.1); CHLORIDE 83 MMOL/L (99-107); CREATININE 0.48 MG/DL (0.40-0.90); GLUCOSE 78 MG/DL (70-104); POTASSIUM 4.9 MMOL/L (3.5-5.1); TOTAL CARBON DIOXIDE 21.7 MMOL/L (24-32); TOTAL PROTEIN 7.4 G/DL (6.4-8.2); eGFR > 90 ML/MIN
[2021-01-14 13:57] LABS: ANISOCYTOSIS 1+; HYPOCHROMASIA 1+; MICROCYTOSIS 2+; PLATELET ESTIMATE NORMAL; POLYCHROMASIA FEW
[2021-01-14 13:58] LABS: SODIUM 113 MMOL/L (135-145)
[2021-01-14] MEDS ORDERED: normal saline 1000ML IV soln IVB ONE (14:10)
[2021-01-14] MEDS ORDERED: potassium Cl 40MEQ/1/2NS 520ml 520 ML IV PRN ×2 (14:55)
[2021-01-14] MEDS ORDERED: magnesium 4gm in 100ml NS 100 ML IV PRN (14:55)
[2021-01-14] MEDS ORDERED: magnesium 2GM in 50ml NS 50 ML IV PRN (14:55)
[2021-01-14] MEDS ORDERED: acetaminophen 325mg tablet PO PRN (14:55)
[2021-01-14] MEDS ORDERED: ondansetron/PF 4mg/2ml inj IV PRN (14:55)
[2021-01-14] MEDS ORDERED: magnesium Cl slow-release 64mg tablet PO PRN (14:55)
[2021-01-14] MEDS ORDERED: potassium Cl 20 mEq SR tablet PO PRN ×2 (14:55)
[2021-01-14 14:57] LABS: ETHANOL < 0.010 GM/DL (0.0-0.010)
[2021-01-14] MEDS: normal saline 1000ml 1,000 ML IV SCH (16:00)
[2021-01-14] MEDS ORDERED: MELA3TAB70 PO (16:02)
[2021-01-14] MEDS: acetaminophen 325mg tablet PO PRN ×2 (16:10→19:20)
[2021-01-14 16:13] LABS: BFAPPEAR HAZY; LYMPHOCYTES,BODY FLUID 48 %; MONOCYTES,BODY FLUID 51 %; NEUTROPHILS,BODY FLUID 1 %
[2021-01-14 16:14] LABS: BF MESOTHELIAL CELLS FEW; BF RBC COUNT 28 /CU MM; BF WBC COUNT 239 /CU MM (0-1000); BFCOLOR YELLOW; BFVOLUME 60 ML
[2021-01-14] MEDS: heparin, porcine 5000 units/ml vial SQ SCH (19:20)
[2021-01-14] MEDS: temazepam 15mg capsule PO PRN (19:21)
[2021-01-14] MEDS: thiamine 100mg tablet PO SCH (19:21)
[2021-01-14 19:45] LABS: CLARITY,URINE SLIGHTLY CLOUDY (Clear); COLOR,URINE YELLOW (Yellow); GLUCOSE, URINE NEGATIVE (Neg); KETONES,URINE 40 mg/dl (Neg); LEUKOCYTE ESTERASE ,URINE NEGATIVE (Neg); NITRITES, URINE NEGATIVE (Neg); OCCULT BLOOD,URINE NEGATIVE (Neg); PH,URINE 6.5 (4.8-8.0); PROTEIN,URINE NEGATIVE (Neg); UROBILINOGEN,URINE >=8.0 E.U/dL (0.2-1.0)
[2021-01-14 19:48] LABS: UA COLLECTION TYPE URINAL
[2021-01-14 19:56] LABS: AMORPHOUS URATES 1+; BACTERIA,URINE 2+ /HPF (Neg); MUCUS STRANDS NONE SEEN /LPF (Neg); RBC,URINE NONE SEEN /HPF (0-2); SQUAMOUS EPITHELIAL CELL,UR MANY /LPF (FEW); WBC,URINE NONE SEEN /HPF (0-4)
[2021-01-14] MEDS: K and/or MAG REPLACEMENT MC SCH (20:00)
[2021-01-14 20:03] LABS: URINE AMPHETAMINE SCREEN NEGATIVE (Neg); URINE BARBITUATE SCREEN NEGATIVE (Neg); URINE BENZODIAZEPINES SCREEN NEGATIVE (Neg); URINE CANNABINOID SCREEN NEGATIVE (Neg); URINE COCAINE SCREEN NEGATIVE (Neg); URINE METHADONE SCREEN NEGATIVE (Neg); URINE OPIATE SCREEN NEGATIVE (Neg); URINE PHENCYCLIDINE SCREEN NEGATIVE (Neg)
[2021-01-14] MEDS: Melatonin 3mg tablet PO SCH (20:24)
[2021-01-14] MEDS: sodium chloride 1gm tablet PO SCH (20:58)
--- NOTE | 2021-01-14 23:16 | NUR ---
Patient in room ED 9. I have received report from LESLY BEAVER and had the opportunity to ask questions and will assume patient care when patient arrives.
[2021-01-14 23:30] VITALS: BP 130/78
[2021-01-15] MEDS: Melatonin 3mg tablet PO SCH (00:38)
[2021-01-15 02:00] VITALS: BP 90/67
[2021-01-15 04:19] LABS: BASOPHILS # (AUTO) 0.1 X10'3 (0-0.2); BASOPHILS % (AUTO) 1.6 % (0-1); EOSINOPHILS % (AUTO) 0.9 % (0-6); HEMATOCRIT 26.7 % (35.0-45.0); HEMOGLOBIN 8.4 g/dl (12.0-16.0); LYMPHOCYTES # (AUTO) 1.6 X10'3 (1.1-4.8); MEAN CORPUSCULAR HEMOGLOBIN 20.6 PG (27.0-31.0); MEAN CORPUSCULAR HGB CONC 31.7 g/dL (33.0-36.5); MEAN CORPUSCULAR VOLUME 65.2 FL (78-98); MEAN PLATELET VOLUME 6.4 FL (7.4-10.4); MONOCYTES # (AUTO) 0.6 X10'3 (0-0.9); MONOCYTES % (AUTO) 14.6 % (2-12); NEUTROPHILS # (AUTO) 1.7 X10'3 (1.8-7.7); NEUTROPHILS % (AUTO) 42.9 % (42-75); PLATELET COUNT 226 X10'3 (140-440); RED BLOOD COUNT 4.09 X10'6 (4.20-5.60); RED CELL DISTRIBUTION WIDTH 17.3 % (11.5-14.5); WHITE BLOOD COUNT 4.1 X10'3 (4.5-11.0)
[2021-01-15 04:30] LABS: ALANINE AMINOTRANSFERASE 25 U/L (12-78); ALBUMIN 2.7 G/DL (3.4-5.0); ALBUMIN/GLOBULIN RATIO 0.7 (1.1-1.5); ALKALINE PHOSPHATASE 121 IU/L (46-116); ANION GAP 8 (8-16); ASPARTATE AMINO TRANSFERASE 18 U/L (10-37); BILIRUBIN,TOTAL 0.3 MG/DL (0.1-1.0); BLOOD UREA NITROGEN 9 MG/DL (7-18); BUN/CREATININE RATIO 17.3 (6.6-38.0); CALCIUM 7.5 MG/DL (8.5-10.1); CHLORIDE 90 MMOL/L (99-107); CREATININE 0.52 MG/DL (0.40-0.90); GLUCOSE 92 MG/DL (70-104); MAGNESIUM 1.8 MG/DL (1.5-2.4); POTASSIUM 4.3 MMOL/L (3.5-5.1); TOTAL CARBON DIOXIDE 20.4 MMOL/L (24-32); TOTAL PROTEIN 6.4 G/DL (6.4-8.2); eGFR > 90 ML/MIN
[2021-01-15 04:36] LABS: SODIUM 118 MMOL/L (135-145)
--- NOTE | 2021-01-15 05:39 | NUR ---
PER DOCTOR MIL IN ER, PATIENT PLACED ON 1799 HOLD WHILE WAITING FOR SODIUM LEVELS TO RESOLVE. PATIENT GRAVELY ILL AND UNABLE TO COMPREHEND HER HEALTH CONDITION. WILL PASS ON THE INFORMATION TO OTHER STAFF.
[2021-01-15 06:00] VITALS: BP 94/61
--- NOTE | 2021-01-15 06:30 | NUR ---
Patient in room COVID 06. I have received report from shira london and had the opportunity to ask questions and assume patient care.
[2021-01-15 07:43] LABS: ANISOCYTOSIS 1+; BURR CELLS FEW; ELLIPTOCYTES FEW; HYPOCHROMASIA 1+; MICROCYTOSIS 2+; PLATELET ESTIMATE NORMAL; TEAR DROP CELLS 1+
[2021-01-15] MEDS: duloxetine 30mg CAPSULE.DR PO SCH (08:00)
[2021-01-15] MEDS: K and/or MAG REPLACEMENT MC SCH ×2 (08:48→19:59)
[2021-01-15] MEDS: cholecalciferol (vitamin D3) 1,000 unit (25mcg) tablet PO SCH (08:49)
[2021-01-15] MEDS: spironolactone 25 MG tablet PO SCH (08:50)
[2021-01-15] MEDS: multivitamins, therapeutics tablet PO SCH (08:51)
[2021-01-15] MEDS: thiamine 100mg tablet PO SCH ×2 (08:51→21:40)
[2021-01-15] MEDS: heparin, porcine 5000 units/ml vial SQ SCH ×2 (08:52→21:46)
[2021-01-15] MEDS: normal saline 1000ml 1,000 ML IV SCH (10:55)
[2021-01-15 11:00] VITALS: BP 116/42
[2021-01-15] MEDS: sodium chloride 1gm tablet PO SCH ×2 (11:43→21:42)
[2021-01-15 13:29] LABS: D-DIMER 2.11 MG/L FEU (0-0.50)
[2021-01-15] MEDS: acetaminophen 325mg tablet PO PRN ×2 (17:11→21:42)
--- NOTE | 2021-01-15 18:38 | NUR ---
Problems reprioritized. Patient report given, questions answered & plan of care reviewed with irasema silva.
[2021-01-15 18:40] VITALS: BP 88/59
[2021-01-15] MEDS: temazepam 15mg capsule PO PRN (21:39)
[2021-01-16] VITALS: BP 98/67
[2021-01-16] MEDS: normal saline 1000ml 1,000 ML IV SCH ×2 (02:30→11:30)
[2021-01-16] MEDS: temazepam 15mg capsule PO PRN ×2 (02:37→20:46)
[2021-01-16 06:00] VITALS: BP 93/55
--- NOTE | 2021-01-16 06:33 | NUR ---
Problems reprioritized. Patient report given, questions answered & plan of care reviewed with ROSE. Addendum: 01/16/21 at 0634 by Gabe Rose RN Amended: Links added.
[2021-01-16] MEDS: thiamine 100mg tablet PO SCH ×2 (07:14→20:46)
[2021-01-16] MEDS: multivitamins, therapeutics tablet PO SCH (07:14)
[2021-01-16] MEDS: cholecalciferol (vitamin D3) 1,000 unit (25mcg) tablet PO SCH (07:14)
[2021-01-16] MEDS: spironolactone 25 MG tablet PO SCH (07:15)
[2021-01-16] MEDS: sodium chloride 1gm tablet PO SCH ×2 (07:15→20:46)
[2021-01-16] MEDS: duloxetine 30mg CAPSULE.DR PO SCH (07:15)
[2021-01-16] MEDS: heparin, porcine 5000 units/ml vial SQ SCH ×2 (07:17→20:47)
[2021-01-16] MEDS: K and/or MAG REPLACEMENT MC SCH ×2 (08:00→20:00)
[2021-01-16 08:07] LABS: EOSINOPHILS % (AUTO) 0.6 % (0-6); HEMATOCRIT 26.3 % (35.0-45.0); HEMOGLOBIN 8.2 g/dl (12.0-16.0); LYMPHOCYTES # (AUTO) 1.8 X10'3 (1.1-4.8); LYMPHOCYTES % (AUTO) 48.1 % (21-51); MEAN CORPUSCULAR HEMOGLOBIN 20.4 PG (27.0-31.0); MEAN CORPUSCULAR HGB CONC 31.1 g/dL (33.0-36.5); MEAN CORPUSCULAR VOLUME 65.8 FL (78-98); MEAN PLATELET VOLUME 6.9 FL (7.4-10.4); MONOCYTES # (AUTO) 0.4 X10'3 (0-0.9); MONOCYTES % (AUTO) 11.6 % (2-12); NEUTROPHILS # (AUTO) 1.4 X10'3 (1.8-7.7); NEUTROPHILS % (AUTO) 38.7 % (42-75); PLATELET COUNT 241 X10'3 (140-440); RED CELL DISTRIBUTION WIDTH 17.5 % (11.5-14.5); WHITE BLOOD COUNT 3.7 X10'3 (4.5-11.0)
[2021-01-16 08:28] LABS: ALANINE AMINOTRANSFERASE 23 U/L (12-78); ALBUMIN 2.6 G/DL (3.4-5.0); ALBUMIN/GLOBULIN RATIO 0.7 (1.1-1.5); ALKALINE PHOSPHATASE 108 IU/L (46-116); ANION GAP 8 (8-16); ASPARTATE AMINO TRANSFERASE 15 U/L (10-37); BILIRUBIN,TOTAL 0.2 MG/DL (0.1-1.0); BLOOD UREA NITROGEN 7 MG/DL (7-18); BUN/CREATININE RATIO 16.3 (6.6-38.0); CALCIUM 7.7 MG/DL (8.5-10.1); CHLORIDE 98 MMOL/L (99-107); CREATININE 0.43 MG/DL (0.40-0.90); GLUCOSE 80 MG/DL (70-104); MAGNESIUM 1.9 MG/DL (1.5-2.4); POTASSIUM 4.7 MMOL/L (3.5-5.1); SODIUM 127 MMOL/L (135-145); TOTAL CARBON DIOXIDE 21.2 MMOL/L (24-32); TOTAL PROTEIN 6.3 G/DL (6.4-8.2); eGFR > 90 ML/MIN
[2021-01-16 09:04] LABS: TOTAL CELLS COUNTED 100
[2021-01-16 09:05] LABS: ANISOCYTOSIS 1+; HYPOCHROMASIA 1+; MICROCYTOSIS 2+; PLATELET ESTIMATE NORMAL
[2021-01-16 09:06] LABS: ELLIPTOCYTES 1+
[2021-01-16 09:07] LABS: TOXIC VACUOLATION 1+
[2021-01-16 12:30] VITALS: BP 93/69
[2021-01-16 13:23] LABS: D-DIMER 2.12 MG/L FEU (0-0.50)
[2021-01-16 17:50] VITALS: BP 101/74
--- NOTE | 2021-01-16 18:58 | NUR ---
Patient in room COVID 01. I have received report from SARANYA Singh and had the opportunity to ask questions and assume patient care.
--- NOTE | 2021-01-16 19:03 | NUR ---
REPORT GIVEN TO FELIX BEAVER, PT STABLE AND APPROPRIATE AT THIS TIME.
[2021-01-16] MEDS: Melatonin 3mg tablet PO SCH (20:48)
[2021-01-16] MEDS ORDERED: folic acid 1mg tablet PO ONE (20:50)
[2021-01-16] MEDS ORDERED: iohexol 350MG/ML 100ml bottle IV ONE (21:18)
[2021-01-16 22:00] VITALS: BP 100/62
[2021-01-17 02:00] VITALS: BP 103/72
[2021-01-17 06:00] VITALS: BP 103/72
--- NOTE | 2021-01-17 06:40 | NUR ---
Patient in room COVID 01. I have received report from SARANYA WASHINGTON and had the opportunity to ask questions and assume patient care.
--- NOTE | 2021-01-17 06:41 | NUR ---
Problems reprioritized. Patient report given, questions answered & plan of care reviewed with SARANYA Ahumada.
[2021-01-17] MEDS: normal saline 1000ml 1,000 ML IV SCH (06:47)
[2021-01-17] MEDS: K and/or MAG REPLACEMENT MC SCH (08:00)
[2021-01-17] MEDS ORDERED: folic acid 1mg tablet PO SCH (08:00)
[2021-01-17 09:41] LABS: D-DIMER 2.99 MG/L FEU (0-0.50)
[2021-01-17] MEDS: spironolactone 25 MG tablet PO SCH (09:48)
[2021-01-17 09:49] LABS: BASOPHILS # (AUTO) 0.1 X10'3 (0-0.2); BASOPHILS % (AUTO) 1.2 % (0-1); EOSINOPHILS % (AUTO) 0.8 % (0-6); LYMPHOCYTES # (AUTO) 1.9 X10'3 (1.1-4.8); MEAN CORPUSCULAR HEMOGLOBIN 20.9 PG (27.0-31.0); MEAN CORPUSCULAR HGB CONC 30.9 g/dL (33.0-36.5); MEAN CORPUSCULAR VOLUME 67.7 FL (78-98); MEAN PLATELET VOLUME 7.1 FL (7.4-10.4); MONOCYTES # (AUTO) 0.2 X10'3 (0-0.9); MONOCYTES % (AUTO) 4.7 % (2-12); NEUTROPHILS # (AUTO) 2.2 X10'3 (1.8-7.7); NEUTROPHILS % (AUTO) 50.3 % (42-75); PLATELET COUNT 276 X10'3 (140-440); RED BLOOD COUNT 4.28 X10'6 (4.20-5.60); RED CELL DISTRIBUTION WIDTH 17.6 % (11.5-14.5); WHITE BLOOD COUNT 4.4 X10'3 (4.5-11.0)
[2021-01-17] MEDS: thiamine 100mg tablet PO SCH (09:49)
[2021-01-17] MEDS: multivitamins, therapeutics tablet PO SCH (09:49)
[2021-01-17] MEDS: duloxetine 30mg CAPSULE.DR PO SCH (09:50)
[2021-01-17] MEDS: heparin, porcine 5000 units/ml vial SQ SCH (09:50)
[2021-01-17] MEDS: cholecalciferol (vitamin D3) 1,000 unit (25mcg) tablet PO SCH (09:50)
[2021-01-17] MEDS: sodium chloride 1gm tablet PO SCH (09:51)
[2021-01-17 10:18] LABS: ALANINE AMINOTRANSFERASE 24 U/L (12-78); ALBUMIN 2.8 G/DL (3.4-5.0); ALBUMIN/GLOBULIN RATIO 0.7 (1.1-1.5); ALKALINE PHOSPHATASE 118 IU/L (46-116); ANION GAP 14 (8-16); ASPARTATE AMINO TRANSFERASE 14 U/L (10-37); BILIRUBIN,TOTAL 0.2 MG/DL (0.1-1.0); BLOOD UREA NITROGEN 11 MG/DL (7-18); BUN/CREATININE RATIO 15.3 (6.6-38.0); C-REACTIVE PROTEIN 0.41 MG/DL (0.0-0.5); CALCIUM 8.3 MG/DL (8.5-10.1); CHLORIDE 99 MMOL/L (99-107); CREATININE 0.72 MG/DL (0.40-0.90); GLUCOSE 205 MG/DL (70-104); MAGNESIUM 1.9 MG/DL (1.5-2.4); PHOSPHORUS 3.4 MG/DL (2.3-4.5); POTASSIUM 4.3 MMOL/L (3.5-5.1); SODIUM 132 MMOL/L (135-145); TOTAL CARBON DIOXIDE 19.4 MMOL/L (24-32); TOTAL PROTEIN 7.1 G/DL (6.4-8.2); eGFR 83 ML/MIN
[2021-01-17 10:40] LABS: ANISOCYTOSIS 1+; MICROCYTOSIS 2+; PLATELET ESTIMATE NORMAL
[2021-01-17 10:41] LABS: ELLIPTOCYTES FEW; SCHISTOCYTES FEW
[2021-01-17 10:55] LABS: LACTATE DEHYDROGENASE 130 U/L (81-234)
[2021-01-17 11:00] VITALS: BP 92/57
[2021-01-17 14:00] VITALS: BP 93/57
[2021-01-17] MEDS ORDERED: FURO-150 PO (14:39)
[2021-01-17] MEDS ORDERED: PROP10TA10 PO (14:39)
[2021-01-17] MEDS ORDERED: LACT10SO32 PO (14:39)
[2021-01-17] MEDS ORDERED: PANT40TA54 PO (14:41)
[2021-01-17] MEDS ORDERED: SODI1TAB2 PO (14:45)
--- NOTE | 2021-01-17 17:09 | NUR ---
reviewed all discharge instructions with pt and daughter, both aware of need to pickle processor prescriptions from [facility] in [place] dc'd from [facility], site clear, pt dc'd via w/c to daughter with all clothing
== END 2021-01-17 16:54 | disposition home or self-care (01) | DRG 137 ==
LOC: ER 10:54 → ED HOLD 14:34 → EDBEDREQ 23:01 → COVID IP 23:59
PROVIDERS: ADMIT Internal Medicine; ATTEND Internal Medicine
PROC: 0W9G3ZZ Drainage of Peritoneal Cavity, Percutaneous Approach (ICD-10-PCS; principal; 2021-01-14)
PROC: B32T1ZZ Computerized Tomography (CT Scan) of Left Pulmonary Artery using Low Osmolar Contrast (ICD-10-PCS; 2021-01-16)
PROC: B3201ZZ Computerized Tomography (CT Scan) of Thoracic Aorta using Low Osmolar Contrast (ICD-10-PCS; 2021-01-16)
PROC: B32S1ZZ Computerized Tomography (CT Scan) of Right Pulmonary Artery using Low Osmolar Contrast (ICD-10-PCS; 2021-01-16)
DX: U07.1 COVID-19 (principal); K72.90 Hepatic failure, unspecified without coma; K70.31 Alcoholic cirrhosis of liver with ascites; D63.8 Anemia in other chronic diseases classified elsewhere; E87.1 Hypo-osmolality and hyponatremia; E11.22 Type 2 diabetes mellitus with diabetic chronic kidney disease; E11.42 Type 2 diabetes mellitus with diabetic polyneuropathy; E03.9 Hypothyroidism, unspecified; E78.00 Pure hypercholesterolemia, unspecified; E78.5 Hyperlipidemia, unspecified; F02.80 Dementia in other diseases classified elsewhere, unspecified severity, without behavioral disturbance, psychotic disturbance, mood disturbance, and anxiety; F32.9 Major depressive disorder, single episode, unspecified; Z60.2 Problems related to living alone; F10.10 Alcohol abuse, uncomplicated; F17.200 Nicotine dependence, unspecified, uncomplicated; F41.9 Anxiety disorder, unspecified; N18.9 Chronic kidney disease, unspecified; Z90.710 Acquired absence of both cervix and uterus; Z98.84 Bariatric surgery status
CPT/HCPCS: 36415; 49083; 71275; 80053; 80305; 80320; 81001; 82140; 83615; 83735; 84100; 85007; 85008; 85025; 85379; 85610; 86140; 87040; 87070; 87081; 89051; 97110; 97116; 97161; 99284; G0378; J1644; J2405; J7030; Q9967

== ENCOUNTER 2021-01-19 14:07 | Emergency (ER) | payer MEDICAID ==
[~2021-01-19] VITALS: Ht 160 cm; Wt 61.4 kg
[~2021-01-19 14:07] MED LIST changes: -FERR325T29 PO; +FURO-150 PO; -FURO20TA4 PO; +LACT10SO32 PO; -MELA3TAB39 PO; +MELA3TAB70 PO; -MELO-100 PO; +PANT40TA54 PO; +PROP10TA10 PO; -SODI100035 PO; +SODI1TAB2 PO; -TRAZ-251 PO
[2021-01-19 14:25] VITALS: BP 123/80
--- NOTE | 2021-01-19 15:05 | NUR ---
ASSISTED APTIENT TO THE PORTABLE BATHROOM. PT ASKED IF IT HE MAGALI IS LONG SHE WANTS TO CALL HER DAUGHTER.
[2021-01-19 15:26] LABS: BASOPHILS # (AUTO) 0.1 X10'3 (0-0.2); BASOPHILS % (AUTO) 1.3 % (0-1); EOSINOPHILS # (AUTO) 0.1 X10'3 (0-0.9); EOSINOPHILS % (AUTO) 0.7 % (0-6); HEMATOCRIT 26.4 % (35.0-45.0); HEMOGLOBIN 8.4 g/dl (12.0-16.0); LYMPHOCYTES % (AUTO) 26.5 % (21-51); MEAN CORPUSCULAR HEMOGLOBIN 20.9 PG (27.0-31.0); MEAN CORPUSCULAR HGB CONC 31.8 g/dL (33.0-36.5); MEAN CORPUSCULAR VOLUME 65.8 FL (78-98); MEAN PLATELET VOLUME 6.9 FL (7.4-10.4); MONOCYTES # (AUTO) 0.6 X10'3 (0-0.9); MONOCYTES % (AUTO) 7.9 % (2-12); NEUTROPHILS # (AUTO) 4.9 X10'3 (1.8-7.7); NEUTROPHILS % (AUTO) 63.6 % (42-75); PLATELET COUNT 350 X10'3 (140-440); RED BLOOD COUNT 4.01 X10'6 (4.20-5.60); RED CELL DISTRIBUTION WIDTH 18.2 % (11.5-14.5); WHITE BLOOD COUNT 7.7 X10'3 (4.5-11.0)
--- NOTE | 2021-01-19 15:35 | NUR ---
PT ASKING TO LUCILLE DAUGHTER FOR A RIDE
--- NOTE | 2021-01-19 15:45 | NUR ---
SPOKE TO DAUGHTER, SHE WILL COME CLIENT SERVICES REPRESENTATIVE PT
[2021-01-19 15:49] LABS: ALANINE AMINOTRANSFERASE 29 U/L (12-78); ALBUMIN 3.1 G/DL (3.4-5.0); ALBUMIN/GLOBULIN RATIO 0.7 (1.1-1.5); ALKALINE PHOSPHATASE 123 IU/L (46-116); ANION GAP 8 (8-16); ASPARTATE AMINO TRANSFERASE 17 U/L (10-37); BILIRUBIN,TOTAL 0.2 MG/DL (0.1-1.0); BLOOD UREA NITROGEN 19 MG/DL (7-18); BUN/CREATININE RATIO 35.2 (6.6-38.0); CALCIUM 8.2 MG/DL (8.5-10.1); CHLORIDE 101 MMOL/L (99-107); CREATININE 0.54 MG/DL (0.40-0.90); ETHANOL < 0.010 GM/DL (0.0-0.010); GLUCOSE 89 MG/DL (70-104); POTASSIUM 4.6 MMOL/L (3.5-5.1); SODIUM 132 MMOL/L (135-145); TOTAL CARBON DIOXIDE 22.7 MMOL/L (24-32); TOTAL PROTEIN 7.4 G/DL (6.4-8.2); eGFR > 90 ML/MIN
[2021-01-19 16:56] LABS: ANISOCYTOSIS 2+; ELLIPTOCYTES FEW; HYPOCHROMASIA 1+; MICROCYTOSIS 2+; PLATELET ESTIMATE NORMAL; SCHISTOCYTES FEW
[2021-01-19 16:57] LABS: BURR CELLS 1+
== END 2021-01-19 16:30 | disposition home or self-care (01) ==
LOC: ER 14:07
DX: R45.851 Suicidal ideations (principal); K70.30 Alcoholic cirrhosis of liver without ascites; E11.42 Type 2 diabetes mellitus with diabetic polyneuropathy; E78.00 Pure hypercholesterolemia, unspecified; G89.29 Other chronic pain; E11.9 Type 2 diabetes mellitus without complications; F41.9 Anxiety disorder, unspecified; F32.9 Major depressive disorder, single episode, unspecified; Z90.710 Acquired absence of both cervix and uterus; Z90.89 Acquired absence of other organs; Z98.890 Other specified postprocedural states; Z79.899 Other long term (current) drug therapy
CPT/HCPCS: 36415; 80053; 80320; 85008; 85025; 99283

== ENCOUNTER → 2021-03-21 | Day surgery (SDC) | payer MEDICAID ==
[~2021-03-21] VITALS: Ht 162.6 cm; Wt 71.3 kg
[~2021-03-21] MED LIST changes: -FURO-150 PO; +IBUP1TAB11 PO; +LIDOcaine 1% (10mg/ml) 2ml vial ONE; +LIDOcaine 1% 30ml preserv. free vial SQ STA; +LIDOcaine 1%/PF 5ML 10 MG/ML VIAL ONE; -PROP10TA10 PO; +albumin 25% 100mL bottle x 1 IV PRN
[2021-03-21 09:39] VITALS: BP 110/73
[2021-03-21 09:55] VITALS: BP 110/67
[2021-03-21 09:57] VITALS: BP 104/66
[2021-03-21 10:10] VITALS: BP 111/75
[2021-03-21 10:19] VITALS: BP 118/57
[2021-03-21 10:24] VITALS: BP 118/57
== END | disposition home or self-care (01) ==
LOC: SSTAY O 08:35
PROVIDERS: ATTEND Radiology Vascular & Interventional Radiology
DX: R18.8 Other ascites (principal); R14.0 Abdominal distension (gaseous); K74.60 Unspecified cirrhosis of liver; K72.90 Hepatic failure, unspecified without coma; E11.9 Type 2 diabetes mellitus without complications; E03.9 Hypothyroidism, unspecified; E78.5 Hyperlipidemia, unspecified; F32.9 Major depressive disorder, single episode, unspecified; F41.9 Anxiety disorder, unspecified; Z86.16 Personal history of COVID-19; F10.10 Alcohol abuse, uncomplicated; Z79.899 Other long term (current) drug therapy
CPT/HCPCS: 49083; J2001

== ENCOUNTER 2021-06-28 07:26 | Emergency (ER) | payer MEDICAID ==
[~2021-06-28] VITALS: Ht 162.6 cm; Wt 66.1 kg
[~2021-06-28 07:26] MED LIST changes: -CHOL100017 PO; -DULO30CA52 PO; -LACT10SO32 PO; -LIDOcaine 1% (10mg/ml) 2ml vial ONE; -LIDOcaine 1% 30ml preserv. free vial SQ STA; -LIDOcaine 1%/PF 5ML 10 MG/ML VIAL ONE; -PANT40TA54 PO; -SODI1TAB2 PO; -SPIR100T5 PO; -THIA100T66 PO; -albumin 25% 100mL bottle x 1 IV PRN
[2021-06-28 07:32] VITALS: BP 134/68
== END 2021-06-28 09:26 | disposition home or self-care (01) ==
LOC: ER 07:27
DX: K70.31 Alcoholic cirrhosis of liver with ascites (principal); E78.00 Pure hypercholesterolemia, unspecified; G89.29 Other chronic pain; F41.9 Anxiety disorder, unspecified; F32.A Depression, unspecified; E11.42 Type 2 diabetes mellitus with diabetic polyneuropathy; N18.9 Chronic kidney disease, unspecified; E11.40 Type 2 diabetes mellitus with diabetic neuropathy, unspecified; E07.9 Disorder of thyroid, unspecified; Z90.710 Acquired absence of both cervix and uterus; Z90.89 Acquired absence of other organs; Z79.899 Other long term (current) drug therapy
CPT/HCPCS: 49083; 99284; 99285

== ENCOUNTER 2022-12-22 18:27 | Emergency (ER) | payer MEDICAID | END 2022-12-22 22:16 | disposition left against medical advice (07) | LOC: ER 18:27 | DX: R10.9 Unspecified abdominal pain (principal); Z53.21 Procedure and treatment not carried out due to patient leaving prior to being seen by health care provider ==

== ENCOUNTER 2024-05-22 07:02 | Emergency (ER) | payer MEDICARE, MEDICAID ==
[~2024-05-22] VITALS: Ht 162.6 cm; Wt 82.0 kg
[2024-05-22 07:12] VITALS: PULSE 70
[2024-05-22] MEDS: ketorolac trometh 30MG/ML vial 30 MG/ML VIAL IM ONE (09:03)
[2024-05-22] MEDS ORDERED: HYDR-3965 PO (09:29)
[2024-05-22 09:37] VITALS: BP 113/58; RESP 16; TEMP 97.4; O2SAT 97
== END 2024-05-22 09:41 | disposition home or self-care (01) ==
LOC: ER 07:02
DX: M54.32 Sciatica, left side (principal); M25.552 Pain in left hip; E11.22 Type 2 diabetes mellitus with diabetic chronic kidney disease; E11.42 Type 2 diabetes mellitus with diabetic polyneuropathy; N18.9 Chronic kidney disease, unspecified; E78.00 Pure hypercholesterolemia, unspecified; E07.9 Disorder of thyroid, unspecified; Z90.710 Acquired absence of both cervix and uterus; W18.30XA Fall on same level, unspecified, initial encounter; Y93.89 Activity, other specified; Y92.89 Other specified places as the place of occurrence of the external cause; Y99.8 Other external cause status
CPT/HCPCS: 96372; 99284; J1885